=== PATIENT | male | born 1940 | race Caucasian/White ===

== ENCOUNTER 2022-02-24 16:03 | Inpatient (IN) ==
[2022-02-24] MEDS ORDERED: SODIUM CHLORIDE 0.9% 1000ML 500 ML IV ONE (16:24)
--- NOTE | 2022-02-24 16:31 | Emergency Department Note ---
History of Present Illness General Chief complaint: Fever Stated complaint: FEVER, NAUSEA Time Seen by Provider: 02/24/22 16:13 Source: patient, family ( who is at the bedside), RN notes reviewed and old records reviewed Mode of arrival: ambulatory Limitations: no limitations History of Present Illness Maximum Pain Intensity: 8 This Patient comes in saying "I am very sick". He said his COPD flareup about a week ago and was seen [facility] on [address]. He finished a course of cefdinir and prednisone. He says started yesterday he felt sick again. He started feeling achy all over had a fever he had nausea but no vomiting he has pain in the upper abdomen/lower chest bilaterally. Has been coughing and has been increased with clear phlegm. He has a history of COPD and does not currently feel like he needs a breathing treatment. He denies any back pain or frequency has had dysuria and a hard time urinating at times. No tick bites or rash. Mild headache but nothing severe. He has had some increasing shortness of breath. He denies any cardiac history and denies that he is on any blood thinners Home Medications Medication Instructions Recorded Confirmed Type albuterol sulfate 90 mcg/actuation 2 puff INHALATION QID PRN 02/24/22 02/24/22 History aerosol inhaler amlodipine 10 mg tablet 10 mg PO QAM 02/24/22 02/24/22 History cholecalciferol (vitamin D3) 25 25 mcg PO DAILY 02/24/22 02/24/22 History mcg (1,000 unit) tablet (Vitamin D3) lisinopril 20 mg tablet 20 mg PO QAM 02/24/22 02/24/22 History prazosin 1 mg capsule 1 mg PO HS 02/24/22 02/24/22 History Allergies Allergy/AdvReac Type Severity Reaction Status Date / Time No Known Allergies Allergy Unverified 02/24/22 17:13 Past Med/Surg History Medical History (Updated 02/24/22 @ 22:33 by Paulo Phipps MD) Arthritis Back pain HTN (hypertension) Surgical History H/O cardiac catheterization History of cataract surgery Social History Smoking Status: Never smoker Tobacco Type: Cigarettes Preferred Language: Niue[place] Feels Safe at Home: Yes Review of Systems A total of 10 systems reviewed and were otherwise negative Physical Exam Vital Signs Vital Signs - 24 hr 02/24/22 16:05 02/24/22 16:22 02/24/22 16:43 Temperature 37.7 C H Temperature Source Temporal Artery Scan Pulse Rate 107 H 102 H Pulse Rate from SpO2 Sensor Respiratory Rate 24 29 H Respiratory Effort / Characteristics Non-Labored Spontaneous Respiratory Depth Normal Respiratory Pattern Regular Blood Pressure 95/59 L Blood Pressure Mean 71 Pulse Oximetry 94 Oxygen Delivery Method Room Air Room Air Sepsis Recent Fever Within 48 Hours No Sepsis New/Unexplained Change in Mental Status No Sepsis Action Taken by Nursing No Action Required 02/24/22 17:08 02/24/22 17:30 02/24/22 18:00 Temperature Temperature Source Pulse Rate 95 H Pulse Rate from SpO2 Sensor 95 H 92 H 95 H Respiratory Rate 26 H 28 H Respiratory Effort / Characteristics Respiratory Depth Respiratory Pattern Blood Pressure Blood Pressure Mean Pulse Oximetry 95 92 90 Oxygen Delivery Method Sepsis Recent Fever Within 48 Hours Sepsis New/Unexplained Change in Mental Status Sepsis Action Taken by Nursing 02/24/22 18:30 Temperature Temperature Source Pulse Rate 91 H Pulse Rate from SpO2 Sensor 91 H Respiratory Rate 27 H Respiratory Effort / Characteristics Respiratory Depth Respiratory Pattern Blood Pressure Blood Pressure Mean Pulse Oximetry 94 Oxygen Delivery Method Sepsis Recent Fever Within 48 Hours Sepsis New/Unexplained Change in Mental Status Sepsis Action Taken by Nursing General: Well developed well nourished mildly ill-appearing older male who appears in no acute distress, breathing comfortably on room air. Normal speech HEENT: Normal cephalic atraumatic. Pupils are equal round and reactive to ligh t. Extraocular movements are intact. Oropharynx is pink with moist mucous membranes. No swelling of the mouth lips or tongue. Neck: Supple with a midline trachea. No meningeal signs or stiffness, no JVD or bruits. No Stridor. Chest: Clear to auscultation bilaterally. No wheezes or rhonchi. No increased work of breathing. Heart: Regular rate and rhythm without murmurs or gallops. Abdomen: Soft, minimally tender in the upper abdomen bilaterally no rash or discoloration. He appears distended but says this is baseline. Norebound guarding or rigidity. Extremities: No cyanosis clubbing or edema. No calf tenderness or assymetry Spine/Back. Non tender to palpation. No CVA tenderness Skin: Good turgor without rashes. Neurologic exam: Cranial nerves two through 12 are intact. Motor and sensation are intact and symmetrical throughout. Course Administered Medications Doxycycline Hyclate 100 mg/ (Dextrose) 110 mls @ 50 mls/hr IV Q12H ASHLEY Stop: 03/10/22 20:59 Last Admin: 02/24/22 21:14 Dose: 50 mls/hr Documented by: [id number] Sodium Chloride (Nss 1000ml) 1,000 mls @ 100 mls/hr IV .Q10H ASHLEY Stop: 03/26/22 21:29 Last Admin: 02/24/22 21:26 Dose: 100 mls/hr Documented by: [id number] Discontinued Medications Sodium Chloride (Nss 1000ml) 500 mls @ 999 mls/hr IV .Q31M ONE Stop: 02/24/22 16:54 Last Infusion: 02/24/22 17:59 Dose: 0 mls/hr Documented by: [id number] Admin: 02/24/22 16:47 Dose: 999 mls/hr Documented by: [id number] Sodium Chloride (Nss 1000ml) 1,000 mls @ 999 mls/hr IV .Q1H1M ONE Stop: 02/24/22 18:37 Last Infusion: 02/24/22 19:41 Dose: 0 mls/hr Documented by: [id number] Admin: 02/24/22 18:32 Dose: 999 mls/hr Documented by: [id number] Ceftriaxone Sodium (Rocephin) 2,000 mg in 70 mls @ 140 mls/hr IV NOW STA Stop: 02/24/22 18:06 Last Infusion: 02/24/22 19:41 Dose: 0 mls/hr Documented by: [id number] Admin: 02/24/22 18:32 Dose: 140 mls/hr Documented by: [id number] Critical Care Time Critical Care Time: Yes Total Critical Care Time: 32 The concern for sepsis and multisystem complaints with hypotension and there, the patient needed extensive work-up, IV fluid boluses, IV antibiotics, repeat frequent reassessment and consultation and therefore I have personally spent greater than 30 minutes of critical care time in the direct management of this patient. This includes bedside care, interpretation of diagnostic studies, and testing, discussion with consultants, patient, and family members, and other required patient management activities. This 30 minutes is in excess of all separately billable procedures. Medical Decision Making Differential Diagnosis Sepsis, pneumonia, cardiac disease, UTI, electrolyte or metabolic abnormality, infection, intra-abdominal process Medical Records Attestation: I reviewed the patient's medical records. Home Medications Current Medication List: was personally reviewed by me Laboratory Data Attestation: I reviewed the patient's lab results. Result diagrams: 02/24/22 16:48 02/24/22 16:48 Lab Results 02/24/22 02/24/22 02/24/22 Range/Units 16:45 16:48 16:48 WBC 10.35 (4.8-10.8) K/uL RBC 4.69 L (4.7-6.1) M/uL Hgb 14.5 (14.0-18.0) g/dL Hct 41.6 L (42-52) % MCV 88.7 (80-100) fL MCH 30.9 (25-34) pg MCHC 34.9 (32-36) g/dL RDW Std Deviation 44.0 (36.4-46.3) fL RDW Coeff of [place] 13.6 (11.5-14.5) % Plt Count 161 (130-400) K/uL MPV 9.2 (7.4-10.4) fL Immature Gran % (Auto) 0.3 % Neut % (Auto) 81.6 % Lymph % (Auto) 12.3 % [place] % (Auto) 5.6 % Eos % (Auto) 0.0 % Baso % (Auto) 0.2 % Neut # (Auto) 8.45 H (1.4-6.5) K/uL Lymph # (Auto) 1.27 (1.2-3.4) K/uL [place] # (Auto) 0.58 (0.11-0.59) K/uL Eos # (Auto) 0.00 (0-0.5) K/uL Baso # (Auto) 0.02 (0-0.2) K/uL Immature Gran # (Auto) 0.03 H (0.00-0.02) K/uL PT 11.7 (9.0-12.0) Seconds INR 1.1 (0.9-1.1) APTT 25.8 (21.0-31.0) Seconds PTT Ratio 0.9 Sodium (136-145) mmol/L Potassium (3.5-5.1) mmol/L Chloride (98-107) mmol/L Carbon Dioxide (21-32) mmol/L Anion Gap (3-11) BUN (6-23) mg/dl Creatinine (0.6-1.4) mg/dl Est Cr Clr Drug Dosing ml/min Est GFR ( Amer) ml/min Est GFR (Non-Af Amer) ml/min BUN/Creatinine Ratio (10-20) Glucose (70-99(Fasting)) mg/dl Lactate 1.4 (0.4-2.0) mmol/L Calcium (8.5-10.1) mg/dl Magnesium (1.7-2.4) mg/dl Total Bilirubin (0.2-1.0) mg/dl AST (13-39) U/L ALT (7-52) U/L Alkaline Phosphatase (34-104) U/L Troponin I (0-0.04) ng/ml B-Natriuretic Peptide (0-100) pg/ml Total Protein (6.0-8.3) gm/dl Albumin (3.4-5.0) gm/dl Globulin (2.5-4.0) gm/dl Albumin/Globulin Ratio (0.9-2) Procalcitonin (0-0.5) ng/ml Urine Color Urine Appearance (Clear) Urine pH (4.5-7.5) POC Urine pH (4.5-7.5) Ur Specific [place] (1.000-1.030) Urine Protein (Negative) POC Urine Protein (Negative) Urine Glucose (UA) (Negative) POC Ur Glucose (UA) (Normal) Urine Ketones (Negative) POC Urine Ketones (Negative) Urine Blood (Negative) POC Urine Blood (Negative) Urine Nitrite (Negative) POC Urine Nitrite (Negative) Urine Bilirubin (Negative) POC Urine Bilirubin (Negative) Urine Urobilinogen (Negative) POC Urine Urobilinogen (Normal) Ur Leukocyte Esterase (Negative) POC U Leukocyte Esteras (Negative) Urine WBC (Auto) (0-5) /hpf Urine RBC (Auto) (0-4) /hpf U Hyaline Cast (Auto) (0-5) /lpf U Epithel Cells (Auto) (0-5) /lpf Urine Bacteria (Auto) (Negative) Adenovirus (PCR) (NotDetected) Anaplasma Smear Anaplasma Comment Babesia Smear B. pertussis DNA (PCR) (NotDetected) B.parapertussis DNA PCR (NotDetected) Lyme Disease IgG Ab (Negative) Lyme Disease IgM Ab (Negative) C. pneumoniae DNA (PCR) (NotDetected) Coronavirus OC43 (PCR) (NotDetected) Coronavirus HKU1 (PCR) (NotDetected) Coronavirus 229E (PCR) (NotDetected) SARS-CoV-2 (PCR) (NotDetected) Coronavirus NL63 (PCR) (NotDetected) Human Metapneumovir PCR (NotDetected) Influenza Type A (PCR) (NotDetected) Influenza Type B (PCR) (NotDetected) M. pneumoniae (PCR) (NotDetected) Parainfluenza 1 (PCR) (NotDetected) Parainfluenza 2 (PCR) (NotDetected) Parainfluenza 3 (PCR) (NotDetected) Parainfluenza 4 (PCR) (NotDetected) RSV (PCR) (NotDetected) Entero/Rhino (PCR) (NotDetected) 02/24/22 02/24/22 02/24/22 Range/Units 16:48 16:48 16:48 WBC (4.8-10.8) K/uL RBC (4.7-6.1) M/uL Hgb (14.0-18.0) g/dL Hct (42-52) % MCV (80-100) fL MCH (25-34) pg MCHC (32-36) g/dL RDW Std Deviation (36.4-46.3) fL RDW Coeff of [place] (11.5-14.5) % Plt Count (130-400) K/uL MPV (7.4-10.4) fL Immature Gran % (Auto) % Neut % (Auto) % Lymph % (Auto) % [place] % (Auto) % Eos % (Auto) % Baso % (Auto) % Neut # (Auto) (1.4-6.5) K/uL Lymph # (Auto) (1.2-3.4) K/uL [place] # (Auto) (0.11-0.59) K/uL Eos # (Auto) (0-0.5) K/uL Baso # (Auto) (0-0.2) K/uL Immature Gran # (Auto) (0.00-0.02) K/uL PT (9.0-12.0) Seconds INR (0.9-1.1) APTT (21.0-31.0) Seconds PTT Ratio Sodium 132 L (136-145) mmol/L Potassium 4.2 (3.5-5.1) mmol/L Chloride 101 (98-107) mmol/L Carbon Dioxide 21 (21-32) mmol/L Anion Gap 10 (3-11) BUN 32 H (6-23) mg/dl Creatinine 2.21 H (0.6-1.4) mg/dl Est Cr Clr Drug Dosing 24.1 ml/min Est GFR ( Amer) 31.4 ml/min Est GFR (Non-Af Amer) 27.1 ml/min BUN/Creatinine Ratio 14.5 (10-20) Glucose 164 H (70-99(Fasting)) mg/dl Lactate (0.4-2.0) mmol/L Calcium 8.2 L (8.5-10.1) mg/dl Magnesium 1.9 (1.7-2.4) mg/dl Total Bilirubin 1.2 H (0.2-1.0) mg/dl AST 27 (13-39) U/L ALT 68 H (7-52) U/L Alkaline Phosphatase 69 (34-104) U/L Troponin I < 0.03 (0-0.04) ng/ml B-Natriuretic Peptide 37 (0-100) pg/ml Total Protein 7.7 (6.0-8.3) gm/dl Albumin 3.7 (3.4-5.0) gm/dl Globulin 4.0 (2.5-4.0) gm/dl Albumin/Globulin Ratio 0.9 (0.9-2) Procalcitonin 1.12 H (0-0.5) ng/ml Urine Color Urine Appearance (Clear) Urine pH (4.5-7.5) POC Urine pH (4.5-7.5) Ur Specific [place] (1.000-1.030) Urine Protein (Negative) POC Urine Protein (Negative) Urine Glucose (UA) (Negative) POC Ur Glucose (UA) (Normal) Urine Ketones (Negative) POC Urine Ketones (Negative) Urine Blood (Negative) POC Urine Blood (Negative) Urine Nitrite (Negative) POC Urine Nitrite (Negative) Urine Bilirubin (Negative) POC Urine Bilirubin (Negative) Urine Urobilinogen (Negative) POC Urine Urobilinogen (Normal) Ur Leukocyte Esterase (Negative) POC U Leukocyte Esteras (Negative) Urine WBC (Auto) (0-5) /hpf Urine RBC (Auto) (0-4) /hpf U Hyaline Cast (Auto) (0-5) /lpf U Epithel Cells (Auto) (0-5) /lpf Urine Bacteria (Auto) (Negative) Adenovirus (PCR) (NotDetected) Anaplasma Smear Anaplasma Comment Babesia Smear B. pertussis DNA (PCR) (NotDetected) B.parapertussis DNA PCR (NotDetected) Lyme Disease IgG Ab (Negative) Lyme Disease IgM Ab (Negative) C. pneumoniae DNA (PCR) (NotDetected) Coronavirus OC43 (PCR) (NotDetected) Coronavirus HKU1 (PCR) (NotDetected) Coronavirus 229E (PCR) (NotDetected) SARS-CoV-2 (PCR) (NotDetected) Coronavirus NL63 (PCR) (NotDetected) Human Metapneumovir PCR (NotDetected) Influenza Type A (PCR) (NotDetected) Influenza Type B (PCR) (NotDetected) M. pneumoniae (PCR) (NotDetected) Parainfluenza 1 (PCR) (NotDetected) Parainfluenza 2 (PCR) (NotDetected) Parainfluenza 3 (PCR) (NotDetected) Parainfluenza 4 (PCR) (NotDetected) RSV (PCR) (NotDetected) Entero/Rhino (PCR) (NotDetected) 02/24/22 02/24/22 02/24/22 Range/Units 17:10 17:47 17:47 WBC (4.8-10.8) K/uL RBC (4.7-6.1) M/uL Hgb (14.0-18.0) g/dL Hct (42-52) % MCV (80-100) fL MCH (25-34) pg MCHC (32-36) g/dL RDW Std Deviation (36.4-46.3) fL RDW Coeff of [place] (11.5-14.5) % Plt Count (130-400) K/uL MPV (7.4-10.4) fL Immature Gran % (Auto) % Neut % (Auto) % Lymph % (Auto) % [place] % (Auto) % Eos % (Auto) % Baso % (Auto) % Neut # (Auto) (1.4-6.5) K/uL Lymph # (Auto) (1.2-3.4) K/uL [place] # (Auto) (0.11-0.59) K/uL Eos # (Auto) (0-0.5) K/uL Baso # (Auto) (0-0.2) K/uL Immature Gran # (Auto) (0.00-0.02) K/uL PT (9.0-12.0) Seconds INR (0.9-1.1) APTT (21.0-31.0) Seconds PTT Ratio Sodium (136-145) mmol/L Potassium (3.5-5.1) mmol/L Chloride (98-107) mmol/L Carbon Dioxide (21-32) mmol/L Anion Gap (3-11) BUN (6-23) mg/dl Creatinine (0.6-1.4) mg/dl Est Cr Clr Drug Dosing ml/min Est GFR ( Amer) ml/min Est GFR (Non-Af Amer) ml/min BUN/Creatinine Ratio (10-20) Glucose (70-99(Fasting)) mg/dl Lactate (0.4-2.0) mmol/L Calcium (8.5-10.1) mg/dl Magnesium (1.7-2.4) mg/dl Total Bilirubin (0.2-1.0) mg/dl AST (13-39) U/L ALT (7-52) U/L Alkaline Phosphatase (34-104) U/L Troponin I (0-0.04) ng/ml B-Natriuretic Peptide (0-100) pg/ml Total Protein (6.0-8.3) gm/dl Albumin (3.4-5.0) gm/dl Globulin (2.5-4.0) gm/dl Albumin/Globulin Ratio (0.9-2) Procalcitonin (0-0.5) ng/ml Urine Color Dark Yellow Urine Appearance Clear (Clear) Urine pH 5.0 (4.5-7.5) POC Urine pH 5 (4.5-7.5) Ur Specific [place] 1.022 (1.000-1.030) Urine Protein Trace H (Negative) POC Urine Protein Negative (Negative) Urine Glucose (UA) Negative (Negative) POC Ur Glucose (UA) Normal (Normal) Urine Ketones Trace H (Negative) POC Urine Ketones Negative (Negative) Urine Blood Negative (Negative) POC Urine Blood Negative (Negative) Urine Nitrite Negative (Negative) POC Urine Nitrite Negative (Negative) Urine Bilirubin Negative (Negative) POC Urine Bilirubin Negative (Negative) Urine Urobilinogen Negative (Negative) POC Urine Urobilinogen Normal (Normal) Ur Leukocyte Esterase Negative (Negative) POC U Leukocyte Esteras Negative (Negative) Urine WBC (Auto) 1-5 (0-5) /hpf Urine RBC (Auto) 5-10 H (0-4) /hpf U Hyaline Cast (Auto) 5-10 H (0-5) /lpf U Epithel Cells (Auto) 10-20 H (0-5) /lpf Urine Bacteria (Auto) Negative (Negative) Adenovirus (PCR) Not Detected (NotDetected) Anaplasma Smear Anaplasma Comment Babesia Smear B. pertussis DNA (PCR) Not Detected (NotDetected) B.parapertussis DNA PCR Not Detected (NotDetected) Lyme Disease IgG Ab (Negative) Lyme Disease IgM Ab (Negative) C. pneumoniae DNA (PCR) Not Detected (NotDetected) Coronavirus OC43 (PCR) Not Detected (NotDetected) Coronavirus HKU1 (PCR) Not Detected (NotDetected) Coronavirus 229E (PCR) Not Detected (NotDetected) SARS-CoV-2 (PCR) Not Detected (NotDetected) Coronavirus NL63 (PCR) Not Detected (NotDetected) Human Metapneumovir PCR Not Detected (NotDetected) Influenza Type A (PCR) Not Detected (NotDetected) Influenza Type B (PCR) Not Detected (NotDetected) M. pneumoniae (PCR) Not Detected (NotDetected) Parainfluenza 1 (PCR) Not Detected (NotDetected) Parainfluenza 2 (PCR) Not Detected (NotDetected) Parainfluenza 3 (PCR) Not Detected (NotDetected) Parainfluenza 4 (PCR) Not Detected (NotDetected) RSV (PCR) Not Detected (NotDetected) Entero/Rhino (PCR) Not Detected (NotDetected) 02/24/22 02/24/22 Range/Units 18:23 18:23 WBC (4.8-10.8) K/uL RBC (4.7-6.1) M/uL Hgb (14.0-18.0) g/dL Hct (42-52) % MCV (80-100) fL MCH (25-34) pg MCHC (32-36) g/dL RDW Std Deviation (36.4-46.3) fL RDW Coeff of [place] (11.5-14.5) % Plt Count (130-400) K/uL MPV (7.4-10.4) fL Immature Gran % (Auto) % Neut % (Auto) % Lymph % (Auto) % [place] % (Auto) % Eos % (Auto) % Baso % (Auto) % Neut # (Auto) (1.4-6.5) K/uL Lymph # (Auto) (1.2-3.4) K/uL [place] # (Auto) (0.11-0.59) K/uL Eos # (Auto) (0-0.5) K/uL Baso # (Auto) (0-0.2) K/uL Immature Gran # (Auto) (0.00-0.02) K/uL PT (9.0-12.0) Seconds INR (0.9-1.1) APTT (21.0-31.0) Seconds PTT Ratio Sodium (136-145) mmol/L Potassium (3.5-5.1) mmol/L Chloride (98-107) mmol/L Carbon Dioxide (21-32) mmol/L Anion Gap (3-11) BUN (6-23) mg/dl Creatinine (0.6-1.4) mg/dl Est Cr Clr Drug Dosing ml/min Est GFR ( Amer) ml/min Est GFR (Non-Af Amer) ml/min BUN/Creatinine Ratio (10-20) Glucose (70-99(Fasting)) mg/dl Lactate (0.4-2.0) mmol/L Calcium (8.5-10.1) mg/dl Magnesium (1.7-2.4) mg/dl Total Bilirubin (0.2-1.0) mg/dl AST (13-39) U/L ALT (7-52) U/L Alkaline Phosphatase (34-104) U/L Troponin I (0-0.04) ng/ml B-Natriuretic Peptide (0-100) pg/ml Total Protein (6.0-8.3) gm/dl Albumin (3.4-5.0) gm/dl Globulin (2.5-4.0) gm/dl Albumin/Globulin Ratio (0.9-2) Procalcitonin (0-0.5) ng/ml Urine Color Urine Appearance (Clear) Urine pH (4.5-7.5) POC Urine pH (4.5-7.5) Ur Specific [place] (1.000-1.030) Urine Protein (Negative) POC Urine Protein (Negative) Urine Glucose (UA) (Negative) POC Ur Glucose (UA) (Normal) Urine Ketones (Negative) POC Urine Ketones (Negative) Urine Blood (Negative) POC Urine Blood (Negative) Urine Nitrite (Negative) POC Urine Nitrite (Negative) Urine Bilirubin (Negative) POC Urine Bilirubin (Negative) Urine Urobilinogen (Negative) POC Urine Urobilinogen (Normal) Ur Leukocyte Esterase (Negative) POC U Leukocyte Esteras (Negative) Urine WBC (Auto) (0-5) /hpf Urine RBC (Auto) (0-4) /hpf U Hyaline Cast (Auto) (0-5) /lpf U Epithel Cells (Auto) (0-5) /lpf Urine Bacteria (Auto) (Negative) Adenovirus (PCR) (NotDetected) Anaplasma Smear See Comment A Anaplasma Comment Pos for Anaplasma Babesia Smear See Comment B. pertussis DNA (PCR) (NotDetected) B.parapertussis DNA PCR (NotDetected) Lyme Disease IgG Ab Negative (Negative) Lyme Disease IgM Ab Positive A (Negative) C. pneumoniae DNA (PCR) (NotDetected) Coronavirus OC43 (PCR) (NotDetected) Coronavirus HKU1 (PCR) (NotDetected) Coronavirus 229E (PCR) (NotDetected) SARS-CoV-2 (PCR) (NotDetected) Coronavirus NL63 (PCR) (NotDetected) Human Metapneumovir PCR (NotDetected) Influenza Type A (PCR) (NotDetected) Influenza Type B (PCR) (NotDetected) M. pneumoniae (PCR) (NotDetected) Parainfluenza 1 (PCR) (NotDetected) Parainfluenza 2 (PCR) (NotDetected) Parainfluenza 3 (PCR) (NotDetected) Parainfluenza 4 (PCR) (NotDetected) RSV (PCR) (NotDetected) Entero/Rhino (PCR) (NotDetected) Imaging Data Attestation: I personally reviewed and interpreted this imaging study as follows: My Impression: Chest X-rayno acute infiltrate, failure, pneumothorax seen. No free air seen. Radiologist's Impression: Chest X-Ray 02/24/22 16:22 SINGLE VIEW CHEST CLINICAL HISTORY: Sepsis. FINDINGS: An AP, portable, upright chest radiograph is compared to study dated 08/12/2013 and correlated with chest CT dated 09/27/2013. The examination is degraded by portable technique and apical lordotic positioning. The heart is enlarged noting atherosclerotic calcification of the thoracic aorta. The pulmonary vasculature is noncongested. Chronic interstitial thickening is similar to previous. There is mild elevation of the left hemidiaphragm with bibasilar scarring/atelectasis. No airspace consolidation or large pleural effusion is identified. No pneumothorax is seen. The skeletal structures are osteopenic. The bony thorax is grossly intact. IMPRESSION: Cardiomegaly with no acute cardiopulmonary abnormality. ACT 112: Negative or not required by law. Electronically signed by: Chris Engel M.D. 02/24/2022 5:03 PM Abdomen/Pelvis CT 02/24/22 16:23 CT SCAN OF THE ABDOMEN AND PELVIS WITHOUT IV CONTRAST CLINICAL HISTORY: Generalized abdominal pain. Fever. Dysuria. COMPARISON STUDY: Abdominal ultrasound dated 04/13/2010. TECHNIQUE: CT scan of the abdomen and pelvis is performed from the lung bases to the proximal femora. Images are reviewed in the axial, sagittal, and coronal planes. IV contrast was not administered for this examination. Note that the examination was performed in significantly suboptimal fashion without oral and IV contrast. A dose lowering technique was utilized adhering to the principles of ALARA. CT DOSE: 787.18 mGy.cm FINDINGS: Lung bases: The heart is mildly enlarged noting a small pericardial effusion. There is bibasilar scarring/atelectasis. Mild bronchiectasis is noted in the lower lobes. No airspace consolidation or pleural effusion is identified. A small hiatal hernia is noted. Liver: The unenhanced liver is normal in size and contour. The liver demons trates diffusely diminished attenuation consistent with hepatic steatosis. Fatty sparing is seen adjacent to gallbladder fossa. There is no intrahepatic biliary ductal dilatation. Gallbladder: Unremarkable. Spleen: Normal in size and attenuation. Pancreas: The unenhanced pancreas is grossly unremarkable. Adrenal glands: Bilateral adrenal adenomas measuring up to 1.5 cm. Kidneys: The unenhanced kidneys are normal in size and without hydronephrosis. There are no renal calculi identified. There is no evidence of contour deforming renal mass lesion. There is nonspecific bilateral perinephric stranding and trace fluid, left greater than right. Abdominal vasculature: There is advanced atherosclerotic calcification and mild ectasia of the abdominal aorta. Bowel: Mild fecal retention is seen throughout the colon. No bowel obstruction is identified. The appendix is well-visualized and normal. Peritoneum: There is no intraperitoneal free air or abdominal ascites. There is a fat-containing umbilical hernia. Lymphadenopathy: None. Pelvic viscera: The prostate gland is mildly enlarged and heterogeneous. The bladder wall appears thickened and trabeculated indicating chronic outlet obstruction. Skeletal structures: The skeletal structures are osteopenic. There is mild to moderate lumbosacral spondylosis. No lytic or blastic lesions are seen. IMPRESSION: 1. There is nonspecific bilateral perinephric stranding and trace fluid, left greater than right. Correlate with clinical findings and urinalysis. 2. No renal calculi or hydronephrosis is seen. 3. Hepatomegaly and hepatic steatosis. 4. Cardiomegaly. 5. Additional findings as above. ACT 112: Negative or not required by law. Electronically signed by: Chris Engel M.D. 02/24/2022 5:16 PM ECG Data Attestation: I personally reviewed and interpreted this ECG as follows: Indication: + weakness Rate (beats per minute): 101 Rhythm: + sinus tachycardia ECG Intervals/blocks: + Normal QRS and + Normal AL ECG [place]: + Left axis deviation ECG Findings: no PACs or no PVCs Comparison ECG Date: from (09/27/2013) Change: no significant change MDM Narrative This patient comes in as described above. He is sick for a day. He has a fever and feels generally ill. He has had some urinary symptoms and nausea. He also had a recent COPD flareup. I am concerned about sepsis. He was initially given a 500 cc IV normal saline bolus. His lungs are clear without crackles. Chest x-ray, EKG, and multiple blood testing was obtained. He was reassessed frequently. I did swab him for Covid and influenza and biofire. His EKG does not show any ischemic changes. Chest x-ray does not show any definite pneumonia or free air. His initial white count was not significant elevated at 10. EKG does not show any ischemic changes or ectopy. Troponin is not elevated. Additionally his BNP is also normal which would go against heart failure as clinically he does not have this either. He was given additional IV fluids. His white count is not elevated and his lactic acid is normal however his procalcitonin is mildly elevated. His CAT scan of his abdomen shows some possible stranding in the urinary system but no obstruction or no other acute abnormalities. His urinalysis does not suggest a UTI. He was given Rocephin 2 g IV for broad-spectrum coverage and concern based on his symptoms that he was having a urinary infection. His bio fire came back negative and therefore there is no evidence to suggest Covid or influenza. 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 He has already received IV Rocephin which should cover Lyme and the hospitalist is going to add doxycycline. I did discuss the care with the hospitalist and I do think he needs to be admitted for further treatment and evaluation. Continuous cardiac monitoring: Orders placed in EMR for continuous traffic monitor specialist. Upon my interpretation patient noted to be in normal sinus rhythm rate of 90. Impression & Plan Sepsis, Weakness, Fever, SIRS (systemic inflammatory response syndrome), Anaplasmosis, Lyme borreliosis, Lab test negative for COVID-19 virus Discharge Plan Visit Data Chief Complaint: Fever Stated Complaint: FEVER, NAUSEA ED Provider: Paulo Phipps Discharge Problem: Sepsis, Weakness, Fever, SIRS (systemic inflammatory response syndrome), Anaplasmosis, Lyme borreliosis, Lab test negative for COVID-19 virus Patient Disposition: Admitted As Inpatient Discharge Instructions Interventions: ED Discharge Assessment Last Done: 02/24/22 21:14 Discharge Problem: Sepsis Qualifiers: Sepsis type: sepsis due to unspecified organism Sepsis acute organ dysfunction status: unspecified Qualified Code(s): A41.9 - Sepsis, unspecified organism Fever Qualifiers: Fever type: unspecified Qualified Code(s): R50.9 - Fever, unspecified
[2022-02-24 17:01] LABS: Hematocrit (blood only) 41.6 % (42-52); Hemoglobin 14.5 g/dL (14.0-18.0); Mean Corpuscular Hemoglobin 30.9 pg (25-34); Mean Corpuscular Hgb Conc 34.9 g/dL (32-36); Mean Corpuscular Volume 88.7 fL (80-100); Mean Platelet Volume 9.2 fL (7.4-10.4); Platelet Count 161 K/uL (130-400); RDW Coefficient of Variation 13.6 % (11.5-14.5); Red Blood Count 4.69 M/uL (4.7-6.1); White Blood Count 10.35 K/uL (4.8-10.8)
--- NOTE | 2022-02-24 17:04 | XRay Report ---
SINGLE VIEW CHEST CLINICAL HISTORY: Sepsis. FINDINGS: An AP, portable, upright chest radiograph is compared to study dated 08/12/2013 and correlat ed with chest CT dated 09/27/2013. The examination is degraded by portable technique and apical lordo tic positioning. The heart is enlarged noting atherosclerotic calcification of the thoracic aorta. Th e pulmonary vasculature is noncongested. Chronic interstitial thickening is similar to previous. Ther e is mild elevation of the left hemidiaphragm with bibasilar scarring/atelectasis. No airspace consol idation or large pleural effusion is identified. No pneumothorax is seen. The skeletal structures are osteopenic. The bony thorax is grossly intact. IMPRESSION: Cardiomegaly with no acute cardiopulmonary abnormality. ACT 112: Negative or not required by law. Electronically signed by: Chris Engel M.D. 02/24/2022 5:03 PM
[2022-02-24 17:11] LABS: INR 1.1 (0.9-1.1); Partial Thromboplastin Ratio 0.9; Partial Thromboplastin Time 25.8 Seconds (21.0-31.0); Prothrombin Time 11.7 Seconds (9.0-12.0)
--- NOTE | 2022-02-24 17:18 | CT Scan Report ---
CT SCAN OF THE ABDOMEN AND PELVIS WITHOUT IV CONTRAST CLINICAL HISTORY: Generalized abdominal pain. Fever. Dysuria. COMPARISON STUDY: Abdominal ultrasound dated 04/13/2010. TECHNIQUE: CT scan of the abdomen and pelvis is performed from the lung bases to the proximal femora. Images are reviewed in the axial, sagittal, and coronal planes. IV contrast was not administered for this examination. Note that the examination was performed in significantly suboptimal fashion withou t oral and IV contrast. A dose lowering technique was utilized adhering to the principles of ALARA. CT DOSE: 787.18 mGy.cm FINDINGS: Lung bases: The heart is mildly enlarged noting a small pericardial effusion. There is bibasilar scar ring/atelectasis. Mild bronchiectasis is noted in the lower lobes. No airspace consolidation or pleur al effusion is identified. A small hiatal hernia is noted. Liver: The unenhanced liver is normal in size and contour. The liver demonstrates diffusely diminishe d attenuation consistent with hepatic steatosis. Fatty sparing is seen adjacent to gallbladder fossa. There is no intrahepatic biliary ductal dilatation. Gallbladder: Unremarkable. Spleen: Normal in size and attenuation. Pancreas: The unenhanced pancreas is grossly unremarkable. Adrenal glands: Bilateral adrenal adenomas measuring up to 1.5 cm. Kidneys: The unenhanced kidneys are normal in size and without hydronephrosis. There are no renal darya culi identified. There is no evidence of contour deforming renal mass lesion. There is nonspecific bi lateral perinephric stranding and trace fluid, left greater than right. Abdominal vasculature: There is advanced atherosclerotic calcification and mild ectasia of the abdomi nal aorta. Bowel: Mild fecal retention is seen throughout the colon. No bowel obstruction is identified. The gerry endix is well-visualized and normal. Peritoneum: There is no intraperitoneal free air or abdominal ascites. There is a fat-containing umbi lical hernia. Lymphadenopathy: None. Pelvic viscera: The prostate gland is mildly enlarged and heterogeneous. The bladder wall appears thi ckened and trabeculated indicating chronic outlet obstruction. Skeletal structures: The skeletal structures are osteopenic. There is mild to moderate lumbosacral sp ondylosis. No lytic or blastic lesions are seen. IMPRESSION: 1. There is nonspecific bilateral perinephric stranding and trace fluid, left greater than right. Cor relate with clinical findings and urinalysis. 2. No renal calculi or hydronephrosis is seen. 3. Hepatomegaly and hepatic steatosis. 4. Cardiomegaly. 5. Additional findings as above. ACT 112: Negative or not required by law. Electronically signed by: Chris Engel M.D. 02/24/2022 5:16 PM
[2022-02-24 17:23] LABS: Troponin I < 0.03 ng/ml (0-0.04)
[2022-02-24 17:29] LABS: Basophils # (auto) 0.02 K/uL (0-0.2); Basophils % (auto) 0.2 %; Immature Granulocytes # (auto) 0.03 K/uL (0.00-0.02); Immature Granulocytes % (auto) 0.3 %; Lymphocytes # (auto) 1.27 K/uL (1.2-3.4); Lymphocytes % (auto) 12.3 %; Monocytes # (auto) 0.58 K/uL (0.11-0.59); Monocytes % (auto) 5.6 %; Neutrophils # (auto) 8.45 K/uL (1.4-6.5); Neutrophils % (auto) 81.6 %
[2022-02-24 17:34] LABS: Alanine Aminotransferase 68 U/L (7-52); Albumin Globulin Ratio 0.9 (0.9-2); Albumin Level 3.7 gm/dl (3.4-5.0); Alkaline Phosphatase 69 U/L (34-104); Anion Gap 10 (3-11); Aspartate Aminotransferase 27 U/L (13-39); BUN Creatinine Ratio 14.5 (10-20); Bilirubin,Total 1.2 mg/dl (0.2-1.0); Blood Urea Nitrogen 32 mg/dl (6-23); Calcium 8.2 mg/dl (8.5-10.1); Carbon Dioxide 21 mmol/L (21-32); Chloride 101 mmol/L (98-107); Creatinine Clr Calc Pharmacy 24.1 ml/min; Est GFR (African American) 31.4 ml/min; Est GFR (Non-African American) 27.1 ml/min; Glucose 164 mg/dl (70-99(Fasting)); Magnesium 1.9 mg/dl (1.7-2.4); Potassium 4.2 mmol/L (3.5-5.1); Sodium 132 mmol/L (136-145); Total Protein 7.7 gm/dl (6.0-8.3)
[2022-02-24] MEDS ORDERED: SODIUM CHLORIDE 0.9% 1000ML 1,000 ML IV ONE (17:37)
[2022-02-24] MEDS ORDERED: cefTRIAXone SODIUM 2,000 MG/70 ML BAG IV STA (17:37)
[2022-02-24 18:02] LABS: POC Urine Bilirubin Negative (Negative); POC Urine Blood Negative (Negative); POC Urine Glucose Normal (Normal); POC Urine Ketones Negative (Negative); POC Urine Leukocytes Negative (Negative); POC Urine Nitrite Negative (Negative); POC Urine Protein Negative (Negative); POC Urine Urobilinogen Normal (Normal); POC Urine pH 5 (4.5-7.5)
[2022-02-24 18:08] LABS: Appearance Urine Clear (Clear); Bacteria Urine Automated Negative (Negative); Bilirubin Urine Negative (Negative); Blood Urine Negative (Negative); Color Urine Dark Yellow; Glucose Urine UA Negative (Negative); Ketones Urine Trace (Negative); Leukocyte Esterase Urine Negative (Negative); Nitrite Urine Negative (Negative); Protein Urine Trace (Negative); Specific Gravity Urine 1.022 (1.000-1.030); Urobilinogen Urine Negative (Negative)
--- NOTE | 2022-02-24 18:16 | History & Physical Report ---
Date of Service February 24, 2022 Assessment & Plan (1) SIRS (systemic inflammatory response syndrome): (2) VLAD (acute kidney injury): (3) Essential (primary) hypertension: (4) COPD (chronic obstructive pulmonary disease): Plan: SIRS- Suspected tick borne illness. r/o sepsis- Meets SIRS criteria with tachycardia, tachypnea, fever. Procal elevated. No leucocytosis. ALT mildly elevated. Anaplasma smear with inclusions, Lyme screen positive, Western blot pending. Non contrast CT with bilateral perinephric stranding but UA unremarkable. Will continue doxy/ceftriaxone for now. Follow up on labs. Can discontinue ceftriaxone if cultures negative and tick illness is the only culprit. VLAD- Cr 2.2, prior Cr 1.3. Hold lisinopril, continue IVF, recheck in am. Avoid nephrotoxics. Hyponatremia- mild, getting ivf, recheck in am HTN- BP low, hold amlodipine and lisinopril. Resume as indicated, one at a time. COPD- not in exacerbation. Recently treated. History of Present Illness Chief Complaint: Not feeling well Primary Care Provider: NO PCP 82 year old male with h/o HTN who presented to the ED not feeling well since yesterday. Patient follows [facility] and has his care there. He was recently diagnosed with COPD in 02/2022 and was recently treated for a flare of COPD with cefdinir, prednisone and ventolin for 5 days and was completed 2 days back, with improvement. Yesterday, he felt sick. He had fever Tmax of 100.5 with chills and bodyaches. Some nausea but no vomiting. No diarrhea. Has difficulty micturition due to BPH. States urine is dark and he has been trying to hydrate himself. No rash. No joint pain. States he had tick bite 3 weeks back but not engorged and was not treated. Denies any sick contacts. Lives with who is fine. No h/o lyme disease. Denies any h/o VTE or cardiac issues. Quit smoking in 2001. Drinks beer occasionally. Denies any drug use. In the ED, he had low grade temperature with some tachypnea and tachycardia and borderline normal BP. He was given IVF and Abx and he was feeling little better. at bedside. Discussed the labs and CT findings and plan of care. Allergies Allergy/AdvReac Type Severity Reaction Status Date / Time No Known Allergies Allergy Unverified 02/24/22 17:13 Home Medications Medication Instructions Recorded Confirmed Type albuterol sulfate 90 mcg/actuation 2 puff INHALATION QID PRN 02/24/22 02/24/22 History aerosol inhaler amlodipine 10 mg tablet 10 mg PO QAM 02/24/22 02/24/22 History cholecalciferol (vitamin D3) 25 25 mcg PO DAILY 02/24/22 02/24/22 History mcg (1,000 unit) tablet (Vitamin D3) lisinopril 20 mg tablet 20 mg PO QAM 02/24/22 02/24/22 History prazosin 1 mg capsule 1 mg PO HS 02/24/22 02/24/22 History Past Med/Surg History Medical History (Updated 02/24/22 @ 19:42 by Simon Childs MD) Arthritis Back pain HTN (hypertension) Surgical History H/O cardiac catheterization History of cataract surgery Social History Smoking Status: Never smoker Tobacco Type: Cigarettes Preferred Language: Romanian Feels Safe at Home: Yes Review of Systems Review of Systems: All systems reviewed & are unremarkable except as noted in Subjective Physical Exam Physical Exam: General: Lying comfortably in bed, not in distress, on room air HEENT: EOMI, GARRETT, MMM Chest: Decreased breath sounds bilaterally, no obvious wheezes or crackles CVS: Regular rate and rhythm, normal heart sounds, no murmur Abdomen: Soft, non tender, not distended, normal bowel sounds Neuro: Awake, alert, oriented, conversing well, non focal Extremities: No cyanosis, clubbing or edema No rash. Prior tick bite site looks normal. Results & Data Results & Data ([facility]) Vital Signs (Past 12 Hours) Vital Signs Temp Pulse Resp BP Pulse Ox 02/24/22 16:05 37.7 C H 107 H 24 95/59 L 94 Laboratory Results Short CBC 02/24/22 Range/Units 16:48 WBC 10.35 (4.8-10.8) K/uL Hgb 14.5 (14.0-18.0) g/dL Hct 41.6 L (42-52) % Plt Count 161 (130-400) K/uL BMP 02/24/22 16:48 Sodium 132 L Potassium 4.2 Chloride 101 Carbon Dioxide 21 BUN 32 H Creatinine 2.21 H Glucose 164 H Calcium 8.2 L Cardiac Enzymes 02/24/22 Range/Units 16:48 Troponin I < 0.03 (0-0.04) ng/ml Liver Function 02/24/22 Range/Units 16:48 Total Bilirubin 1.2 H (0.2-1.0) mg/dl AST 27 (13-39) U/L ALT 68 H (7-52) U/L Alkaline Phosphatase 69 (34-104) U/L Albumin 3.7 (3.4-5.0) gm/dl Urine 02/24/22 Range/Units 17:47 Urine Color Dark Yellow Urine Appearance Clear (Clear) Urine pH 5.0 (4.5-7.5) Ur Specific [place] 1.022 (1.000-1.030) Urine Protein Trace H (Negative) Urine Glucose (UA) Negative (Negative) Diagnostic Findings Chest X-Ray 02/24/22 16:22 SINGLE VIEW CHEST CLINICAL HISTORY: Sepsis. FINDINGS: An AP, portable, upright chest radiograph is compared to study dated 08/12/2013 and correlated with chest CT dated 09/27/2013. The examination is degraded by portable technique and apical lordotic positioning. The heart is enlarged noting atherosclerotic calcification of the thoracic aorta. The pulmonary vasculature is noncongested. Chronic interstitial thickening is similar to previous. There is mild elevation of the left hemidiaphragm with bibasilar scarring/atelectasis. No airspace consolidation or large pleural effusion is identified. No pneumothorax is seen. The skeletal structures are osteopenic. The bony thorax is grossly intact. IMPRESSION: Cardiomegaly with no acute cardiopulmonary abnormality. ACT 112: Negative or not required by law. Electronically signed by: Chris Engel M.D. 02/24/2022 5:03 PM Abdomen/Pelvis CT 02/24/22 16:23 CT SCAN OF THE ABDOMEN AND PELVIS WITHOUT IV CONTRAST CLINICAL HISTORY: Generalized abdominal pain. Fever. Dysuria. COMPARISON STUDY: Abdominal ultrasound dated 04/13/2010. TECHNIQUE: CT scan of the abdomen and pelvis is performed from the lung bases to the proximal femora. Images are reviewed in the axial, sagittal, and coronal planes. IV contrast was not administered for this examination. Note that the examination was performed in significantly suboptimal fashion without oral and IV contrast. A dose lowering technique was utilized adhering to the principles of ALARA. CT DOSE: 787.18 mGy.cm FINDINGS: Lung bases: The heart is mildly enlarged noting a small pericardial effusion. There is bibasilar scarring/atelectasis. Mild bronchiectasis is noted in the lower lobes. No airspace consolidation or pleural effusion is identified. A small hiatal hernia is noted. Liver: The unenhanced liver is normal in size and contour. The liver demonstrates diffusely diminished attenuation consistent with hepatic steatosis. Fatty sparing is seen adjacent to gallbladder fossa. There is no intrahepatic biliary ductal dilatation. Gallbladder: Unremarkable. Spleen: Normal in size and attenuation. Pancreas: The unenhanced pancreas is grossly unremarkable. Adrenal glands: Bilateral adrenal adenomas measuring up to 1.5 cm. Kidneys: The unenhanced kidneys are normal in size and without hydronephrosis. There are no renal calculi identified. There is no evidence of contour deforming renal mass lesion. There is nonspecific bilateral perinephric stranding and trace fluid, left greater than right. Abdominal vasculature: There is advanced atherosclerotic calcification and mild ectasia of the abdominal aorta. Bowel: Mild fecal retention is seen throughout the colon. No bowel obstruction is identified. The appendix is well-visualized and normal. Peritoneum: There is no intraperitoneal free air or abdominal ascites. There is a fat-containing umbilical hernia. Lymphadenopathy: None. Pelvic viscera: The prostate gland is mildly enlarged and heterogeneous. The bladder wall appears thickened and trabeculated indicating chronic outlet obstruction. Skeletal structures: The skeletal structures are osteopenic. There is mild to moderate lumbosacral spondylosis. No lytic or blastic lesions are seen. IMPRESSION: 1. There is nonspecific bilateral perinephric stranding and trace fluid, left greater than right. Correlate with clinical findings and urinalysis. 2. No renal calculi or hydronephrosis is seen. 3. Hepatomegaly and hepatic steatosis. 4. Cardiomegaly. 5. Additional findings as above. ACT 112: Negative or not required by law. Electronically signed by: Chris Engel M.D. 02/24/2022 5:16 PM
[2022-02-24 18:41] LABS: Adenovirus PCR Not Detected (NotDetected); Bordetella parapertussis PCR Not Detected (NotDetected); Bordetella pertussis PCR Not Detected (NotDetected); Chlamydia pneumoniae PCR Not Detected (NotDetected); Coronavirus 229E PCR Not Detected (NotDetected); Coronavirus CoV-2 (COVID19)PCR Not Detected (NotDetected); Coronavirus HKU1 PCR Not Detected (NotDetected); Coronavirus NL63 PCR Not Detected (NotDetected); Coronavirus OC43PCR Not Detected (NotDetected); Human Metapneumovirus PCR Not Detected (NotDetected); Influenza A PCR Not Detected (NotDetected); Influenza B PCR Not Detected (NotDetected); Mycoplasma pneumoniae PCR Not Detected (NotDetected); Parainfluenza Virus 1 PCR Not Detected (NotDetected); Parainfluenza Virus 2 PCR Not Detected (NotDetected); Parainfluenza Virus 3 PCR Not Detected (NotDetected); Parainfluenza Virus 4 PCR Not Detected (NotDetected); Respiratory Syncytial VirusPCR Not Detected (NotDetected); Rhinovirus/Enterovirus PCR Not Detected (NotDetected)
[2022-02-24 19:08] LABS: Lyme Ab IgG w/WB Rflx Negative (Negative)
[2022-02-24 19:31] LABS: Lyme Ab IgM w/WB Rflx Positive (Negative)
[2022-02-24 20:32] LABS: Anaplasmosis Smear(Rpt to DOH) Pos for Anaplasma
[2022-02-24] MEDS: DOXYCYCLINE HYCLATE 100 MG in DEXTROSE 5% 100 ML IV SCH (21:14)
[2022-02-24] MEDS ORDERED: ALBUTEROL HFA 8 GM INHALER INH PRN (21:16)
[2022-02-24] MEDS ORDERED: cefTRIAXone SODIUM 2,000 MG in DEXTROSE 5% 50 ML IV SCH (21:16)
[2022-02-24] MEDS: SODIUM CHLORIDE 0.9% 1000ML 1,000 ML IV SCH (21:26)
[2022-02-24] MEDS ORDERED: ENOXAPARIN INJ 30 MG/0.3 ML SYR SQ SCH (21:30)
[2022-02-24] MEDS: PRAZOSIN HCL 1 MG CAP PO SCH (22:42)
[2022-02-25 08:08] LABS: Basophils # (auto) 0.05 K/uL (0-0.2); Basophils % (auto) 0.7 %; Eosinophils # (auto) 0.02 K/uL (0-0.5); Eosinophils % (auto) 0.3 %; Hematocrit (blood only) 34.5 % (42-52); Immature Granulocytes # (auto) 0.02 K/uL (0.00-0.02); Immature Granulocytes % (auto) 0.3 %; Lymphocytes # (auto) 1.96 K/uL (1.2-3.4); Mean Corpuscular Hgb Conc 34.8 g/dL (32-36); Mean Corpuscular Volume 89.1 fL (80-100); Mean Platelet Volume 9.8 fL (7.4-10.4); Monocytes # (auto) 0.57 K/uL (0.11-0.59); Monocytes % (auto) 8.2 %; Neutrophils # (auto) 4.37 K/uL (1.4-6.5); Neutrophils % (auto) 62.5 %; Platelet Count 122 K/uL (130-400); RDW Coefficient of Variation 13.9 % (11.5-14.5); RDW Standard Deviation 45.6 fL (36.4-46.3); Red Blood Count 3.87 M/uL (4.7-6.1); White Blood Count 6.99 K/uL (4.8-10.8)
[2022-02-25] MEDS: SODIUM CHLORIDE 0.9% 1000ML 1,000 ML IV SCH ×2 (08:29→21:11)
[2022-02-25 08:41] LABS: Creatinine Clr Calc Pharmacy 41.7 ml/min; Est GFR (African American) 52.8 ml/min; Est GFR (Non-African American) 45.5 ml/min
[2022-02-25 08:42] LABS: BUN Creatinine Ratio 19.4 (10-20); Bilirubin Direct 0.2 mg/dl (0-0.2); Bilirubin,Total 0.9 mg/dl (0.2-1.0); Calcium 7.2 mg/dl (8.5-10.1); Potassium 3.8 mmol/L (3.5-5.1); Total Protein 6.3 gm/dl (6.0-8.3)
[2022-02-25] MEDS: DOXYCYCLINE HYCLATE 100 MG in DEXTROSE 5% 100 ML IV SCH ×2 (09:02→21:12)
--- NOTE | 2022-02-25 13:27 | Hospitalist Progress Note ---
Date of Service February 25, 2022 Assessment & Plan (1) SIRS (systemic inflammatory response syndrome): (2) VLAD (acute kidney injury): (3) Essential (primary) hypertension: (4) COPD (chronic obstructive pulmonary disease): Plan: #. Flulike illness vs tick borne infection Patient presented with complaints of decreased appetite, myalgia, feeling of achy, feeling of short of breath, runny nose, fever, loose stool for 3 to 4 days prior to arrival. Patient has history of tick bite 3 weeks ago [employer], no skin rash at the site of bite. Procalcitonin was elevated at presentation, pt started on ATB 02/24, will continue w/ that Lyme disease IgM antibody positive, Western blot pending. Patient reports improving appetite and cough. Afebrile in hospital. Getting better. Afebrile, WBC WNL; follow-up with Western blot and other tickborne serology. Follow-up post testing blood culture. Continue with supportive management. #. VLAD Baseline creatinine around 1.2, admitting creatinine 2.2 Likely prerenal from poor p.o. intake prior to arrival. Patient on IV fluid, creatinine improving BMP daily, avoid nephrotoxins #. Hyponatremia: Mild, getting IVF, follow-up BMP, secondary to poor p.o. intake. #. Other chronic medical conditions: HTN, COPD Continue/resume home medication as and when appropriate Continue to hold antihypertensive and lisinopril. DVT prophylaxis: Enoxaparin Full code PT/OT, CM to assist with DC planning. Admission and Anticipated Discharge Date Admission Date: February 24, 2022 Subjective Patient seen and examined at bedside as a follow-up of SIRS POA, likely viral infection, recent history of tick bite. Patient was lying in bed, on room air, NAD, no new acute events overnight. Patient reports improving appetite and feeling hungry today. Pt reports cough improving. Patient denies any nausea or vomiting. Patient denies any headache/chills/fever/chest pain/palpitations/pelvic pain/other review of symptoms. Physical Exam Physical Exam: GENERAL: Was asleep initially. Alert and oriented x3. NAD, on RA. HEENT: No pallor, no icterus. Pupils equal, round and reactive to light. Oral mucosa moist. NECK: No JVD, no neck masses. HEART: S1 and S2 heard. Regular rate and rhythm. No murmur, no gallop. RESPIRATORY SYSTEM: Normal AP diameter. No accessory muscle use. No wheezing, no crackles. ABDOMEN: Soft, bowel sounds present, nontender, no distention. CENTRAL NERVOUS SYSTEM: No facial droop. Speech is clear. Obeys simple commands. Moves extremities. EXTREMITIES: No edema, no erythema seen. No rash. Prior tick bite site looks normal. Results & Data Results & Data ([facility]) Vital Signs (Past 12 Hours) Vital Signs Temp Pulse Pulse Pulse Resp BP Pulse Ox 02/25/22 12:00 36.3 C L 63 18 112/54 L 93 02/25/22 07:28 36.7 C 74 18 100/61 92 02/25/22 07:00 73 02/25/22 03:41 36.8 C 80 20 127/63 93
[2022-02-25] MEDS ORDERED: cefTRIAXone SODIUM 2,000 MG in DEXTROSE 5% 50 ML IV SCH (18:00)
[2022-02-25] MEDS ORDERED: ENOXAPARIN INJ 40 MG/0.4 ML SYR SQ SCH (21:00)
[2022-02-25] MEDS: PRAZOSIN HCL 1 MG CAP PO SCH (21:12)
[2022-02-25] MEDS ORDERED: SIMETHICONE 80 MG CHEW PO STA (23:06)
--- NOTE | 2022-02-26 05:55 | Electrocardiogram Report ---
Test Reason : Blood Pressure : / mmHG Vent. Rate : 101 BPM Atrial Rate : 101 BPM P-R Int : 182 ms QRS Dur : 082 ms QT Int : 320 ms P-R-T Axes : 063 -40 076 degrees QTc Int : 414 ms Sinus tachycardia Left axis deviation Abnormal ECG When compared with ECG of 27-SEP-2013 12:10, Vent. rate has increased BY 41 BPM P wave morphology has changed Confirmed by Del Carlisle ([id number]) on 02/26/2022 5:55:11 AM Referred By: REFERRED SELF Confirmed By:Del Carlisle
[2022-02-26] MEDS: SODIUM CHLORIDE 0.9% 1000ML 1,000 ML IV SCH (07:41)
[2022-02-26] MEDS: DOXYCYCLINE HYCLATE 100 MG in DEXTROSE 5% 100 ML IV SCH (07:55)
[2022-02-26 08:42] LABS: Hematocrit (blood only) 36.5 % (42-52); Hemoglobin 12.8 g/dL (14.0-18.0); Mean Corpuscular Hemoglobin 30.5 pg (25-34); Mean Corpuscular Hgb Conc 35.1 g/dL (32-36); Mean Corpuscular Volume 87.1 fL (80-100); Platelet Count 129 K/uL (130-400); RDW Coefficient of Variation 13.6 % (11.5-14.5); RDW Standard Deviation 43.6 fL (36.4-46.3); Red Blood Count 4.19 M/uL (4.7-6.1); White Blood Count 6.22 K/uL (4.8-10.8)
[2022-02-26 10:23] LABS: BUN Creatinine Ratio 13.7 (10-20); Calcium 7.9 mg/dl (8.5-10.1); Creatinine Clr Calc Pharmacy 37.4 ml/min; Est GFR (African American) 46.1 ml/min; Est GFR (Non-African American) 39.8 ml/min; Magnesium 1.8 mg/dl (1.7-2.4)
--- NOTE | 2022-02-26 13:53 | Discharge Summary ---
Date of Service February 26, 2022 Admission HPI Per Admitting Provider 82 year old male with h/o HTN who presented to the ED not feeling well since yesterday. Patient follows [place] and has his care there. He was recently diagnosed with COPD in 02/2022 and was recently treated for a flare of COPD with cefdinir, prednisone and ventolin for 5 days and was completed 2 days back, with improvement. Yesterday, he felt sick. He had fever Tmax of 100.5 with chills and bodyaches. Some nausea but no vomiting. No diarrhea. Has difficulty micturition due to BPH. States urine is dark and he has been trying to hydrate himself. No rash. No joint pain. States he had tick bite 3 weeks back but not engorged and was not treated. Denies any sick contacts. Lives with who is fine. No h/o lyme disease. Denies any h/o VTE or cardiac issues. Quit smoking in 2001. Drinks beer occasionally. Denies any drug use. In the ED, he had low grade temperature with some tachypnea and tachycardia and borderline normal BP. He was given IVF and Abx and he was feeling little better. at bedside. Discussed the labs and CT findings and plan of care. Admission Exam Per Admitting Provider General: Lying comfortably in bed, not in distress, on room air HEENT: EOMI, GARRETT, MMM Chest: Decreased breath sounds bilaterally, no obvious wheezes or crackles CVS: Regular rate and rhythm, normal heart sounds, no murmur Abdomen: Soft, non tender, not distended, normal bowel sounds Neuro: Awake, alert, oriented, conversing well, non focal Extremities: No cyanosis, clubbing or edema No rash. Prior tick bite site looks normal. Principal Diagnosis Acute kidney injury over CKD Flulike illness versus tickborne infection Mild hyponatremia Discharge Exam GENERAL: Was asleep initially. Alert and oriented x3. NAD, on RA. HEENT: No pallor, no icterus. Pupils equal, round and reactive to light. Oral mucosa moist. NECK: No JVD, no neck masses. HEART: S1 and S2 heard. Regular rate and rhythm. No murmur, no gallop. RESPIRATORY SYSTEM: Normal AP diameter. No accessory muscle use. No wheezing, no crackles. ABDOMEN: Soft, bowel sounds present, nontender, no distention. CENTRAL NERVOUS SYSTEM: No facial droop. Speech is clear. Obeys simple commands. Moves extremities. EXTREMITIES: No edema, no erythema seen. No rash. Prior tick bite site looks normal. Discharge Data Allergies Allergy/AdvReac Type Severity Reaction Status Date / Time No Known Allergies Allergy Unverified 02/24/22 17:13 Consultations 02/24/22 18:14 ED Decision to Admit Stat Ordered Studies 02/24/22 16:23 CT abd pelvis wo con Stat Hospital Course (1) SIRS (systemic inflammatory response syndrome): (2) VLAD (acute kidney injury): (3) Essential (primary) hypertension: (4) COPD (chronic obstructive pulmonary disease): 82 yo M was managed for the following while in hospital: #. Flulike illness vs tick borne infection Patient presented with complaints of decreased appetite, myalgia, feeling of achy, feeling of short of breath, runny nose, fever, loose stool for 3 to 4 days prior to arrival. Patient has history of tick bite 3 weeks ago TRIM IN[employer], no skin rash at the site of bite. Procalcitonin was elevated at presentation, pt started on ATB 02/24, will continue w/ that Lyme disease IgM antibody positive, Western blot pending. Patient reports improving appetite and cough. Afebrile in hospital. Getting better. Patient feels stronger today especially with walking. Afebrile, WBC WNL; follow-up with Western blot and other tickborne serology/patient advised to get in touch with PCP. Follow-up with PCP in a week time. #. VLAD Baseline creatinine around 1.2, admitting creatinine 2.2 Likely prerenal from poor p.o. intake prior to arrival. Creatinine still elevated but better, weekly BMP for 3 weeks and have the results forwarded to your PCP Lisinopril held upon discharge, needs discussion with PCP prior to resuming lisinopril. #. Hyponatremia: Resolved. Improved p.o. intake. #. Other chronic medical conditions: HTN, COPD Continue/resume home medication as and when appropriate Continue to hold lisinopril upon discharge [see above]. DVT prophylaxis: Enoxaparin Full code Patient is being discharged home with following instruction at the point of discharge: Follow-up with the primary care physician within a week time. While in the hospital your Lyme disease IgM antibody is positive, your Western blot test is pending, follow-up with your primary care for final results of your Western blot test. You will be discharged on doxycycline. As discussed at the bedside, your kidney have mild injury at the time of discharge, you will need your blood work BMP every week for 3 weeks and have the results forwarded to your PCP. Your lisinopril will be held upon discharge, follow-up with your PCP within a week time to discuss on resuming your lisinopril after you get your first blood work BMP. It needs to be resumed when your kidney function is back to your baseline. Take medications as prescribed. Total Time Total Time Spent Total Time Spent (In Minutes): 40 Discharge Plan Discharge Items Patient Disposition: Home - Self-Care Reason For Visit: FEELING SICK Discharge Diagnosis: Acute kidney injury over CKD Flulike illness versus tickborne infection Mild hyponatremia Activity: Resume your previous activity Non-emergency contact: Primary Care Provider Call non-emergency contact if: you have any medication questions, your symptoms worsen and your temperature is above 101 Follow-up/Referrals: PCP,NO [Primary Care Provider] - Diet: Regular Addtl Attending Provider Instructions: Follow-up with the primary care physician within a week time. While in the hospital your Lyme disease IgM antibody is positive, your Western blot test is pending, follow-up with your primary care for final results of your Western blot test. You will be discharged on doxycycline. As discussed at the bedside, your kidney have mild injury at the time of discharge, you will need your blood work BMP every week for 3 weeks and have the results forwarded to your PCP. Your lisinopril will be held upon discharge, follow-up with your PCP within a week time to discuss on resuming your lisinopril after you get your first blood work BMP. It needs to be resumed when your kidney function is back to your baseline. Take medications as prescribed. Pending Studies at Discharge: Yes (Admitting blood culture) Stand-Alone Forms: My [employer], Smoking Cessation Medications and DC Order Prescriptions: New doxycycline hyclate 100 mg tablet 100 mg PO BID 10 Days Qty: 20 RF: 0 Continued albuterol sulfate 90 mcg/actuation HFA aerosol inhaler 2 puff INHALATION QID PRN (Reason: Shortness Of Breath Or Wheezing) RF: 0 prazosin 1 mg Capsule 1 mg PO HS RF: 0 amlodipine 10 mg Tablet 10 mg PO QAM RF: 0 cholecalciferol (vitamin D3) [Vitamin D3] 25 mcg (1,000 unit) Tablet 25 mcg PO DAILY RF: 0 Discontinued lisinopril 20 mg Tablet 20 mg PO QAM RF: 0 Discharge Orders: Discharge Order (Routine); Ordered 02/26/22 Ordered By: Lamine Whitehead Admission Data Admit Date/Time: 02/24/22 19:56 Attending Provider: Lamine Whitehead Admit Provider: Simon Childs Primary Care Provider: PCP,NO Other Providers: Simon Childs ; [facility]
[2022-02-26] MEDS ORDERED: cefTRIAXone SODIUM 2,000 MG in DEXTROSE 5% 50 ML IV ONE (14:00)
[2022-02-27 13:56] LABS: 18KDIGG Band NON-REACTIVE; 23KDIGG Band NON-REACTIVE; 23KDIGM Band REACTIVE; 28KDIGG Band NON-REACTIVE; 30KDIGG Band NON-REACTIVE; 39KDIGG Band NON-REACTIVE; 39KDIGM Band NON-REACTIVE; 41KDIGG Band REACTIVE; 41KDIGM Band NON-REACTIVE; 45KDIGG Band NON-REACTIVE; 58KDIGG Band NON-REACTIVE; 66KDIGG Band NON-REACTIVE; 93KDIGG Band NON-REACTIVE; Lyme Antibodies, WB IgG NEGATIVE (NEGATIVE); Lyme Antibodies, WB IgM NEGATIVE (NEGATIVE)
[2022-02-28 13:46] LABS: Babesia microti DNA Not Detected (Not Detected)
== END 2022-02-26 17:40 | disposition home or self-care (01) | DRG 868 ==
LOC: ED 16:03 → SUATTDRO 19:56 → 2W 19:56

== ENCOUNTER 2024-04-03 17:52 | Inpatient (IN) ==
--- NOTE | 2024-04-03 18:12 | Emergency Department Note ---
Impression & Plan Cellulitis, Flores cyst ED Provider Note NAME: DION MATUTE AGE: 84 SEX: M : 1940 ARRIVES VIA: Walk-In INFORMANT: Patient, ED PROVIDER(S): Luciano Gonzalez DO CHIEF COMPLAINT: Leg pain HPI: The patient is an 84-year-old male who presented to the emergency department for evaluation of lower extremity pain. The patient had flulike symptoms last week with bodyaches but those resolved. He started noticing right lower extremity swelling and pain over the last 24 hours. He noticed redness as well. He has pain into his groin. The patient denies having any injury to his right lower extremity. He denies having any cuts or bruises. 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 The patient is not been seen by his family doctor for the symptoms. He denies having any nausea or vomiting. He denies having any chest pain or difficulty breathing. ROS: See above HPI for pertinent positives & negatives. A total of 10 systems reviewed and were otherwise negative. PAST MEDICAL HISTORY: See Below PAST SURGICAL HISTORY: See Below FAMILY HISTORY: See Below SOCIAL HISTORY: See Below HOME MEDICATIONS: See Below ALLERGIES: See Below VITALS: See Below PHYSICAL EXAMINATION: GENERAL: Patient is awake alert in no acute distress patient is resting comfortably and showing no signs of anxiety EYES: The conjunctivae are clear. The pupils are round and reactive. EARS, NOSE, MOUTH AND THROAT: The nose is without any evidence of any deformity. Mucous membranes are moist. Tongue is midline. NECK: The neck is nontender and supple. RESPIRATORY: Normal respiratory effort is noted there is no evidence of wheezing rhonchi or rales CARDIOVASCULAR: Regular rate and rhythm noted there no murmurs rubs or gallops normal S1 normal S2. GASTROINTESTINAL: The abdomen is soft. Abdomen is nontender. MUSCULOSKELETAL/EXTREMITIES: There is no evidence of gross deformity full range of motion is noted in the hips and shoulders. SKIN: Right lower extremities swelling was noted. There is erythema especially in the right calf into the ankle. There is no fluctuance. There is lymphangitic streaking with tenderness into the right groin. Pulses are symmetric in both feet. NEUROLOGIC: Patient is awake alert and oriented x3 MEDICAL DECISION MAKING: The patient is an 84-year-old male who presented to the emergency department for an evaluation of leg swelling and leg pain. His history and physical exam appear to be consistent with a cellulitis but he has significant inguinal pain. I was concerned this could also represent venous thromboembolic disease. I discussed patient's laboratory and radiographic studies with him. He was treated with IV antibiotics in the emergency department. The cellulitis does appear to be somewhat extensive especially in the right lower extremity but he also has signs of lymphangitic streaking in the right thigh. For this reason I discussed his condition with the on-call [facility] hospitalist. They have agreed to evaluate the patient in the emergency department for further management and disposition. Triage Nursing notes reviewed. Prior medical records reviewed Vital Signs: reviewed and remarkable for no significant abnormalities Differential diagnosis: Cellulitis, abscess, MRSA infection, DVT, necrotizing fasciitis, dermatitis, drug eruption, allergic reaction, as well as other pathologies. ER treatment provided: See below Diagnostics interpreted by me: ECG: none Cardiac Monitoring: An order was placed for continuous cardiac monitoring. The monitor shows a rate of 82 bpm with sinus rhythm. Laboratory studies: As stated above and show below. Imaging studies: See below. Consultation(s): I discussed this case with Dr. Ariz[facility]endi [facility]. Past Med/Surg History Problem List (Updated 04/03/24 @ 23:33 by Luciano Gonzalez DO) Flores cyst (Acute) Cellulitis (Acute) Lab test negative for COVID-19 virus (Acute) Lyme borreliosis (Acute) Anaplasmosis (Acute) Sepsis (Acute) COPD (chronic obstructive pulmonary disease) Essential (primary) hypertension VLAD (acute kidney injury) SIRS (systemic inflammatory response syndrome) (Acute) Weakness (Acute) Fever (Acute) Epistaxis (Acute) Epistaxis (Acute) Medical History (Updated 04/03/24 @ 23:33 by Luciano Gonzalez DO) Back pain Arthritis HTN (hypertension) Surgical History History of cataract surgery Social History Smoking Status: Former smoker Tobacco Type: Cigarettes Hx Alcohol Use: Yes Hx Substance Use: No Preferred Language: Nigerien Communication Ability: Effective [employer] Technician Required: No Beliefs That Will Affect Care: None Current Living Situation: Spouse Feels Safe at Home: Yes Assistive Devices: Cane Allergies Allergies Allergy/AdvReac Type Severity Reaction Status Date / Time No Known Allergies Allergy Unverified 04/03/24 20:40 Home Meds Home Medications Medication Instructions Recorded Confirmed cholecalciferol (vitamin D3) 25 25 mcg PO DAILY 02/24/22 04/03/24 mcg (1,000 unit) tablet (Vitamin D3) amlodipine 10 mg tablet 10 mg PO HS 04/03/24 04/03/24 lisinopril 40 mg tablet 40 mg PO QAM 04/03/24 04/03/24 naproxen 500 mg tablet 500 mg PO UD PRN Pain 04/03/24 04/03/24 prazosin 2 mg capsule 2 mg PO HS 04/03/24 04/03/24 Results & Data (ED) Vital Signs Vital Signs - 24 hr 04/03/24 17:54 04/03/24 18:46 04/03/24 19:22 Temperature 36.5 C Temperature Source Oral Pulse Rate 91 H 75 Pulse Rate [Left] 79 Pulse Rate from SpO2 Sensor Pulse Rhythm [Left] Regular Pulse Strength [Left] Normal Respiratory Rate 16 18 Respiratory Effort / Characteristics Non-Labored Respiratory Depth Normal Normal Respiratory Pattern Regular Blood Pressure 124/66 Blood Pressure [Left Arm] 133/79 Blood Pressure Mean 85 Blood Pressure Mean [Left Arm] 97 Blood Pressure Position [Left Arm] Sitting Pulse Oximetry 96 95 Oxygen Delivery Method Room Air Room Air Sepsis Recent Fever Within 48 Hours No Sepsis New/Unexplained Change in Mental Status N/A Sepsis Action Taken by Nursing No Action Required 04/03/24 19:23 04/03/24 19:30 04/03/24 19:30 Temperature Temperature Source Pulse Rate 75 76 Pulse Rate [Left] Pulse Rate from SpO2 Sensor 76 74 Pulse Rhythm [Left] Pulse Strength [Left] Respiratory Rate 25 H 24 Respiratory Effort / Characteristics Respiratory Depth Respiratory Pattern Blood Pressure 137/78 Blood Pressure [Left Arm] Blood Pressure Mean 96 Blood Pressure Mean [Left Arm] Blood Pressure Position [Left Arm] Pulse Oximetry 95 95 Oxygen Delivery Method Sepsis Recent Fever Within 48 Hours Sepsis New/Unexplained Change in Mental Status Sepsis Action Taken by Nursing 04/03/24 19:40 04/03/24 19:50 04/03/24 20:03 Temperature Temperature Source Pulse Rate 77 77 Pulse Rate [Left] 76 Pulse Rate from SpO2 Sensor 77 76 Pulse Rhythm [Left] Pulse Strength [Left] Respiratory Rate 24 23 20 Respiratory Effort / Characteristics Non-Labored Spontaneous Respiratory Depth Normal Respiratory Pattern Blood Pressure Blood Pressure [Left Arm] 137/78 Blood Pressure Mean Blood Pressure Mean [Left Arm] 97 Blood Pressure Position [Left Arm] Pulse Oximetry 92 93 97 Oxygen Delivery Method Room Air Sepsis Recent Fever Within 48 Hours Sepsis New/Unexplained Change in Mental Status Sepsis Action Taken by Nursing 04/03/24 21:24 04/03/24 21:30 04/03/24 21:30 Temperature Temperature Source Pulse Rate 80 Pulse Rate [Left] Pulse Rate from SpO2 Sensor 75 Pulse Rhythm [Left] Pulse Strength [Left] Respiratory Rate 22 Respiratory Effort / Characteristics Respiratory Depth Respiratory Pattern Blood Pressure 114/93 122/67 Blood Pressure [Left Arm] Blood Pressure Mean 94 82 Blood Pressure Mean [Left Arm] Blood Pressure Position [Left Arm] Pulse Oximetry 93 Oxygen Delivery Method Sepsis Recent Fever Within 48 Hours Sepsis New/Unexplained Change in Mental Status Sepsis Action Taken by Nursing 04/03/24 22:00 04/03/24 23:00 Temperature Temperature Source Pulse Rate 82 Pulse Rate [Left] 82 Pulse Rate from SpO2 Sensor Pulse Rhythm [Left] Regular Pulse Strength [Left] Normal Respiratory Rate 20 18 Respiratory Effort / Characteristics Non-Labored Spontaneous Respiratory Depth Normal Respiratory Pattern Regular Blood Pressure 127/78 Blood Pressure [Left Arm] 119/77 Blood Pressure Mean 94 Blood Pressure Mean [Left Arm] 91 Blood Pressure Position [Left Arm] Pulse Oximetry 94 93 Oxygen Delivery Method Room Air Sepsis Recent Fever Within 48 Hours Sepsis New/Unexplained Change in Mental Status Sepsis Action Taken by [facility] Medications Current Medication List: was personally reviewed by me Laboratory Data Attestation: I reviewed the patient's lab results. 04/03/24 18:15 04/03/24 18:15 Lab Results 04/03/24 Range/Units 18:15 WBC 14.33 H (4.8-10.8) K/ul RBC 4.75 (4.70-6.10) M/uL Hgb 14.7 (14.0-18.0) g/dl Hct 41.4 L (42.0-52.0) % MCV 87.2 (80.0-100.0) fL MCH 30.9 (25.0-34.0) pg MCHC 35.5 (32.0-36.0) g/dL RDW Std Deviation 42.2 (36.4-46.3) fL RDW Coeff of [place] 13.2 (11.5-14.5) % Plt Count 166 (130-400) K/uL MPV 9.3 L (9.4-12.4) fL Immature Gran % (Auto) 1.5 % Neut % (Auto) 82.7 % Lymph % (Auto) 9.4 % [place] % (Auto) 5.7 % Eos % (Auto) 0.2 % Baso % (Auto) 0.5 % Neut # (Auto) 11.86 H (1.40-6.50) K/uL Lymph # (Auto) 1.34 (1.20-3.40) K/uL [place] # (Auto) 0.82 H (0.11-0.59) K/uL Eos # (Auto) 0.03 (0.00-0.50) K/uL Baso # (Auto) 0.07 (0.00-0.20) K/uL Immature Gran # (Auto) 0.21 H (0.01-0.20) K/uL PT 11.9 (9.0-12.0) Seconds INR 1.1 (0.9-1.1) APTT 29 (21-31) Seconds PTT Ratio 1.1 Sodium 137 (136-145) mmol/L Potassium 3.8 (3.5-5.1) mmol/L Chloride 105 (98-107) mmol/L Carbon Dioxide 23 (21-32) mmol/L Anion Gap 9 (3-11) BUN 22 (6-23) mg/dl Creatinine 1.77 H (0.6-1.4) mg/dl Est Cr Clr Drug Dosing 33.3 ml/min Est GFR ( Amer) 40.6 ml/min Est GFR (Non-Af Amer) 35.0 ml/min BUN/Creatinine Ratio 12.4 (10-20) Glucose 146 H (70-99(Fasting)) mg/dl Lactate 1.2 (0.4-2.0) mmol/L Calcium 9.0 (8.6-10.3) mg/dl Total Bilirubin 2.0 H (0.2-1.0) mg/dl AST 20 (13-39) U/L ALT 32 (7-52) U/L Alkaline Phosphatase 77 (34-104) U/L C-Reactive Protein 19.39 H (0-0.5) mg/dl Total Protein 7.6 (6.0-8.3) gm/dl Albumin 3.9 (3.4-5.0) gm/dl Globulin 3.7 (2.5-4.0) gm/dl Albumin/Globulin Ratio 1.1 (0.9-2) Procalcitonin 0.42 (0-0.5) ng/ml Lyme Disease Screen Negative (Negative) Administered Medications Discontinued Medications Ceftriaxone Sodium (Rocephin) 2,000 mg in 50 mls @ 100 mls/hr IV NOW STA; Protocol Stop: 04/03/24 18:37 Last Infusion: 04/03/24 19:41 Dose: Infused Documented By: Admin: 04/03/24 18:45 Dose: 100 mls/hr Documented By: CHITO Sodium Chloride (Nss) 500 mls @ 999 mls/hr IV .Q31M STA Stop: 04/03/24 18:38 Last Infusion: 04/03/24 20:02 Dose: Infused Documented By: Admin: 04/03/24 18:45 Dose: 999 mls/hr Documented By: IL Imaging Data Radiologist's Impression: Venous Doppler Study 04/03/24 18:08 Exam(s): US VENOUS RIGHT LOWER EXTREMITY EXAM: US Duplex Right Lower Extremity Veins CLINICAL HISTORY: Reason for exam: swelling. TECHNIQUE: Real-time duplex ultrasound scan of the right lower extremity veins integrating B-mode two-dimensional vascular structure, Doppler spectral analysis, color flow Doppler imaging and compression. COMPARISON: No relevant prior studies available. FINDINGS: Deep veins: Unremarkable. No DVT in the visualized common femoral, femoral, proximal deep femoral or popliteal veins. The veins demonstrate normal color flow, are normally compressible, with normal phasic flow and/or augmentation response. Soft tissues: Right popliteal fossa cyst measuring 1.1 x 1.8 x 0.5 cm. IMPRESSION: No evidence of right lower extremity deep venous thrombosis. Right popliteal fossa cyst measuring 1.1 x 1.8 x 0.5 cm. Electronically signed by: Robb Randolph M.D. 04/03/24 23:09 PM Discharge Plan Visit Data Chief Complaint: Pain (Generalized) Stated Complaint: RT LEG BLOOD VESSELS, NAUSEA ED Provider: Carlos,Luciano R Discharge Problem: Cellulitis, Flores cyst Patient Disposition: Being Evaluated by Hospitalist Forms Stand Alone Forms: My [facility] [employer] Prescriptions Prescriptions: No Action cholecalciferol (vitamin D3) [Vitamin D3] 25 mcg (1,000 unit) Tablet 25 mcg PO DAILY amlodipine 10 mg Tablet 10 mg PO HS lisinopril 40 mg Tablet 40 mg PO QAM prazosin 2 mg Capsule 2 mg PO HS naproxen 500 mg Tablet 500 mg PO UD PRN (Reason: Pain) Referrals Referrals: PCP,NO [Primary Care Provider] - Discharge Problem: Cellulitis Qualifiers: Site of cellulitis: extremity Site of cellulitis of extremity: lower extremity Laterality: right Qualified Code(s): L03.115 - Cellulitis of right lower limb Flores cyst Qualifiers: Laterality: right Qualified Code(s): M71.21 - Synovial cyst of popliteal space [Flores], right knee
[2024-04-03] MEDS: SODIUM CHLORIDE 0.9% 500 ML IV STA (18:45)
[2024-04-03] MEDS: cefTRIAXone SODIUM 2,000 MG/50 ML BAG IV STA (18:45)
[2024-04-03 18:46] LABS: Basophils # (auto) 0.07 K/uL (0.00-0.20); Basophils % (auto) 0.5 %; Eosinophils # (auto) 0.03 K/uL (0.00-0.50); Eosinophils % (auto) 0.2 %; Hematocrit (blood only) 41.4 % (42.0-52.0); Hemoglobin 14.7 g/dl (14.0-18.0); Immature Granulocytes # (auto) 0.21 K/uL (0.01-0.20); Immature Granulocytes % (auto) 1.5 %; Lymphocytes # (auto) 1.34 K/uL (1.20-3.40); Lymphocytes % (auto) 9.4 %; Mean Corpuscular Hemoglobin 30.9 pg (25.0-34.0); Mean Corpuscular Hgb Conc 35.5 g/dL (32.0-36.0); Mean Corpuscular Volume 87.2 fL (80.0-100.0); Mean Platelet Volume 9.3 fL (9.4-12.4); Monocytes # (auto) 0.82 K/uL (0.11-0.59); Monocytes % (auto) 5.7 %; Neutrophils # (auto) 11.86 K/uL (1.40-6.50); Neutrophils % (auto) 82.7 %; Platelet Count 166 K/uL (130-400); RDW Coefficient of Variation 13.2 % (11.5-14.5); RDW Standard Deviation 42.2 fL (36.4-46.3); Red Blood Count 4.75 M/uL (4.70-6.10); White Blood Count 14.33 K/ul (4.8-10.8)
[2024-04-03 18:57] LABS: Albumin Globulin Ratio 1.1 (0.9-2); Albumin Level 3.9 gm/dl (3.4-5.0); BUN Creatinine Ratio 12.4 (10-20); Creatinine Clr Calc Pharmacy 33.3 ml/min; Est GFR (African American) 40.6 ml/min; Globulin 3.7 gm/dl (2.5-4.0); Potassium 3.8 mmol/L (3.5-5.1); Total Protein 7.6 gm/dl (6.0-8.3)
[2024-04-03 19:02] LABS: Procalcitonin 0.42 ng/ml (0-0.5)
[2024-04-03 19:05] LABS: INR 1.1 (0.9-1.1); Partial Thromboplastin Ratio 1.1; Partial Thromboplastin Time 29 Seconds (21-31); Prothrombin Time 11.9 Seconds (9.0-12.0)
[2024-04-03 19:27] LABS: Lyme Screen Rflx Confirmation Negative (Negative)
--- NOTE | 2024-04-03 23:10 | Ultrasound Report ---
Exam(s): US VENOUS RIGHT LOWER EXTREMITY EXAM: US Duplex Right Lower Extremity Veins CLINICAL HISTORY: Reason for exam: swelling. TECHNIQUE: Real-time duplex ultrasound scan of the right lower extremity veins integrating B-mode two-dimensional vascular structure, Doppler spectral analysis, color flow Doppler imaging and compression. COMPARISON: No relevant prior studies available. FINDINGS: Deep veins: Unremarkable. No DVT in the visualized common femoral, femoral, proximal deep femoral or popliteal veins. The veins demonstrate normal color flow, are normally compressible, with normal phasic flow and/or augmentation response. Soft tissues: Right popliteal fossa cyst measuring 1.1 x 1.8 x 0.5 cm. IMPRESSION: No evidence of right lower extremity deep venous thrombosis. Right popliteal fossa cyst measuring 1.1 x 1.8 x 0.5 cm. Electronically signed by: Robb Randolph M.D. 04/03/24 23:09 PM
[2024-04-03 23:17] LABS: C Reactive Protein 19.39 mg/dl (0-0.5)
[2024-04-04 00:33] LABS: Appearance Urine Clear (Clear); Bacteria Urine Automated None Seen (None Seen); Bilirubin Urine 1+ (Negative); Blood Urine Negative (Negative); Cast Urine Automated 0-2 /lpf (0-2); Color Urine Dark Yellow; Epithelial Cell Urine Auto 0-2 /hpf (0-2); Glucose Urine UA Negative (Negative); Ketones Urine Trace (Negative); Leukocyte Esterase Urine Trace (Negative); Nitrite Urine Negative (Negative); Protein Urine 2+ (Negative); RBC Urine Automated 0-2 /hpf (0-2); Specific Gravity Urine 1.027 (1.000-1.030); Urobilinogen Urine Negative (Negative); WBC Urine Automated 0-5 /hpf (0-5); pH Urine 5.5 (4.5-7.5)
[2024-04-04] MEDS: DOXYCYCLINE HYCLATE 100 MG in DEXTROSE 5% MINI-B 100 ML IV STA (00:39)
--- NOTE | 2024-04-04 01:14 | History & Physical Report ---
Date of Service April 04, 2024 Assessment & Plan (1) Sepsis: Plan: Secondary to RLE cellulitis ARF on CRI secondary to illness hx CVA as per records hypertension, stable hyperlipidemia, not on statin Rx COPD, chronic cough symptoms Hyperglycemia rule out DM past tobacco abuse GMF CS, Doxycycline Elevate right lower extremity Monitor creatinine response to IVF, hold lisinopril for now until creatinine back to baseline Consider decreasing amlodipine dose if BP stable off lisinopril Check hemoglobin A1c DVT prophylaxis. Heparin subcu Full code Patient requesting updates providers. Ms. Vero Granados, contact #[phone]. Text document was generated using [employer] voice recognition software. It may contain grammatical or spelling errors. Kindly contact undersigned for clarification of any documentation item in question. History of Present Illness Chief Complaint: Worsening right leg swelling Primary Care Provider: ABIDA Harrell History obtained from patient, family, and records. Medical history significant for CVA as per records, hypertension, hyperlipidemi a, COPD, NAFLD, GERD, CRI (baseline creatinine 1.6 ), BPH, chronic back pain, past tobacco abuse. Last confinement February 2022 for flulike illness versus tickborne infection. Patient completed doxycycline course. Patient woke up yesterday morning with right leg swelling which progressed throughout the day. Fever chills without chest pain or unusual SOB. No recollection of trauma. No abdominal pain. Emesis at the ER from being hungry. Ceftriaxone administered at the ER. 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 Allergies Allergy/AdvReac Type Severity Reaction Status Date / Time No Known Allergies Allergy Unverified 04/03/24 20:40 Home Medications Medication Instructions Recorded Confirmed Type cholecalciferol (vitamin D3) 25 25 mcg PO DAILY 02/24/22 04/03/24 History mcg (1,000 unit) tablet (Vitamin D3) amlodipine 10 mg tablet 10 mg PO HS 04/03/24 04/03/24 History lisinopril 40 mg tablet 40 mg PO QAM 04/03/24 04/03/24 History naproxen 500 mg tablet 500 mg PO UD PRN Pain 04/03/24 04/03/24 History prazosin 2 mg capsule 2 mg PO HS 04/03/24 04/03/24 History Past Med/Surg History Problem List (Updated 04/03/24 @ 23:33 by Luciano Gonzalez DO) Flroes cyst (Acute) Cellulitis (Acute) Lab test negative for COVID-19 virus (Acute) Lyme borreliosis (Acute) Anaplasmosis (Acute) Sepsis (Acute) COPD (chronic obstructive pulmonary disease) Essential (primary) hypertension VLAD (acute kidney injury) SIRS (systemic inflammatory response syndrome) (Acute) Weakness (Acute) Fever (Acute) Epistaxis (Acute) Epistaxis (Acute) Medical History (Updated 04/03/24 @ 23:33 by Luciano Gonzalez DO) Back pain Arthritis HTN (hypertension) Surgical History History of cataract surgery Social History Smoking Status: Former smoker Tobacco Type: Cigarettes Hx Alcohol Use: Yes Alcohol type: beer Hx Substance Use: No Preferred Language: Swedish Communication Ability: Effective [employer] Finish Operator Tig Welder Required: No Beliefs That Will Affect Care: None Current Living Situation: Spouse Feels Safe at Home: Yes Safety Concerns: Feels Safe At This Time Assistive Devices: Cane and Hearing Aid - Bilateral Review of Systems Review of Systems: As per HPI, all other systems reviewed and negative Physical Exam Physical Exam: GENERAL: Comfortable, pleasant, obese, looks younger than stated age, no respiratory distress SKIN: Normal color, warm HEENT: [place] palpebral conjunctivae, no ptosis, dry buccal mucosa NECK : Supple, no tenderness CHEST : Decreased breath sounds, no tenderness HEART : RRR, no obvious murmurs ABDOMEN: Some distention, nontender EXTREMITIES : Tender RLE swelling, no other conspicuous deformities noted NEUROLOGIC : Coherent, no facial asymmetry, no other gross focality Results & Data Results & Data Vital Signs (Past 12 Hours) Vital Signs Temp Pulse Pulse Resp BP BP Pulse Ox 04/04/24 01:00 82 24 139/84 93 04/04/24 00:30 78 24 147/74 H 95 04/04/24 00:28 82 04/04/24 00:11 91 H 24 118/68 93 04/03/24 23:30 18 126/69 93 04/03/24 23:00 82 18 127/78 93 04/03/24 22:00 82 20 119/77 94 04/03/24 21:30 80 22 93 04/03/24 21:30 122/67 04/03/24 21:24 114/93 04/03/24 20:03 76 20 137/78 97 04/03/24 19:50 77 23 93 04/03/24 19:40 77 24 92 04/03/24 19:30 137/78 04/03/24 19:30 76 24 95 04/03/24 19:23 75 25 H 95 04/03/24 19:22 75 04/03/24 18:46 79 18 133/79 95 04/03/24 17:54 36.5 C 91 H 16 124/66 96 O2 Del Method 04/04/24 01:00 04/04/24 00:30 04/04/24 00:28 04/04/24 00:11 04/03/24 23:30 04/03/24 23:00 04/03/24 22:00 Room Air 04/03/24 21:30 04/03/24 21:30 04/03/24 21:24 04/03/24 20:03 Room Air 04/03/24 19:50 04/03/24 19:40 04/03/24 19:30 04/03/24 19:30 04/03/24 19:23 04/03/24 19:22 04/03/24 18:46 Room Air 04/03/24 17:54 Room Air Laboratory Results Laboratory Results WBC 14.33 K/ul (4.8-10.8) H 04/03/24 18:15 RBC 4.75 M/uL (4.70-6.10) 04/03/24 18:15 Hgb 14.7 g/dl (14.0-18.0) 04/03/24 18:15 Hct 41.4 % (42.0-52.0) L 04/03/24 18:15 MCV 87.2 fL (80.0-100.0) 04/03/24 18:15 MCH 30.9 pg (25.0-34.0) 04/03/24 18:15 MCHC 35.5 g/dL (32.0-36.0) 04/03/24 18:15 RDW Std Deviation 42.2 fL (36.4-46.3) 04/03/24 18:15 RDW Coeff of Lakia 13.2 % (11.5-14.5) 04/03/24 18:15 Plt Count 166 K/uL (130-400) 04/03/24 18:15 MPV 9.3 fL (9.4-12.4) L 04/03/24 18:15 Immature Gran % (Auto) 1.5 % 04/03/24 18:15 Neut % (Auto) 82.7 % 04/03/24 18:15 Lymph % (Auto) 9.4 % 04/03/24 18:15 Kerr % (Auto) 5.7 % 04/03/24 18:15 Eos % (Auto) 0.2 % 04/03/24 18:15 Baso % (Auto) 0.5 % 04/03/24 18:15 Neut # (Auto) 11.86 K/uL (1.40-6.50) H 04/03/24 18:15 Lymph # (Auto) 1.34 K/uL (1.20-3.40) 04/03/24 18:15 Kerr # (Auto) 0.82 K/uL (0.11-0.59) H 04/03/24 18:15 Eos # (Auto) 0.03 K/uL (0.00-0.50) 04/03/24 18:15 Baso # (Auto) 0.07 K/uL (0.00-0.20) 04/03/24 18:15 Immature Gran # (Auto) 0.21 K/uL (0.01-0.20) H 04/03/24 18:15 PT 11.9 Seconds (9.0-12.0) 04/03/24 18:15 INR 1.1 (0.9-1.1) 04/03/24 18:15 APTT 29 Seconds (21-31) 04/03/24 18:15 PTT Ratio 1.1 04/03/24 18:15 Sodium 137 mmol/L (136-145) 04/03/24 18:15 Potassium 3.8 mmol/L (3.5-5.1) 04/03/24 18:15 Chloride 105 mmol/L (98-107) 04/03/24 18:15 Carbon Dioxide 23 mmol/L (21-32) 04/03/24 18:15 Anion Gap 9 (3-11) 04/03/24 18:15 BUN 22 mg/dl (6-23) 04/03/24 18:15 Creatinine 1.77 mg/dl (0.6-1.4) H 04/03/24 18:15 Est Cr Clr Drug Dosing 33.3 ml/min 04/03/24 18:15 Est GFR ( Amer) 40.6 ml/min 04/03/24 18:15 Est GFR (Non-Af Amer) 35.0 ml/min 04/03/24 18:15 BUN/Creatinine Ratio 12.4 (10-20) 04/03/24 18:15 Glucose 146 mg/dl (70-99(Fasting)) H 04/03/24 18:15 Lactate 1.2 mmol/L (0.4-2.0) 04/03/24 18:15 Calcium 9.0 mg/dl (8.6-10.3) 04/03/24 18:15 Total Bilirubin 2.0 mg/dl (0.2-1.0) H 04/03/24 18:15 AST 20 U/L (13-39) 04/03/24 18:15 ALT 32 U/L (7-52) 04/03/24 18:15 Alkaline Phosphatase 77 U/L (34-104) 04/03/24 18:15 C-Reactive Protein 19.39 mg/dl (0-0.5) H 04/03/24 18:15 Total Protein 7.6 gm/dl (6.0-8.3) 04/03/24 18:15 Albumin 3.9 gm/dl (3.4-5.0) 04/03/24 18:15 Globulin 3.7 gm/dl (2.5-4.0) 04/03/24 18:15 Albumin/Globulin Ratio 1.1 (0.9-2) 04/03/24 18:15 Procalcitonin 0.42 ng/ml (0-0.5) 04/03/24 18:15 Urine Color Dark Yellow 04/04/24 00:05 Urine Appearance Clear (Clear) 04/04/24 00:05 Urine pH 5.5 (4.5-7.5) 04/04/24 00:05 Ur Specific [place] 1.027 (1.000-1.030) 04/04/24 00:05 Urine Protein 2+ (Negative) H 04/04/24 00:05 Urine Glucose (UA) Negative (Negative) 04/04/24 00:05 Urine Ketones Trace (Negative) H 04/04/24 00:05 Urine Blood Negative (Negative) 04/04/24 00:05 Urine Nitrite Negative (Negative) 04/04/24 00:05 Urine Bilirubin 1+ (Negative) H 04/04/24 00:05 Urine Urobilinogen Negative (Negative) 04/04/24 00:05 Ur Leukocyte Esterase Trace (Negative) H 04/04/24 00:05 Urine WBC (Auto) 0-5 /hpf (0-5) 04/04/24 00:05 Urine RBC (Auto) 0-2 /hpf (0-2) 04/04/24 00:05 U Hyaline Cast (Auto) 0-2 /lpf (0-2) 04/04/24 00:05 U Epithel Cells (Auto) 0-2 /hpf (0-2) 04/04/24 00:05 Urine Bacteria (Auto) None Seen (None Seen) 04/04/24 00:05 Lyme Disease Screen Negative (Negative) 04/03/24 18:15 Impressions Venous Doppler Study 04/03/24 18:08 Exam(s): US VENOUS RIGHT LOWER EXTREMITY EXAM: US Duplex Right Lower Extremity Veins CLINICAL HISTORY: Reason for exam: swelling. TECHNIQUE: Real-time duplex ultrasound scan of the right lower extremity veins integrating B-mode two-dimensional vascular structure, Doppler spectral analysis, color flow Doppler imaging and compression. COMPARISON: No relevant prior studies available. FINDINGS: Deep veins: Unremarkable. No DVT in the visualized common femoral, femoral, proximal deep femoral or popliteal veins. The veins demonstrate normal color flow, are normally compressible, with normal phasic flow and/or augmentation response. Soft tissues: Right popliteal fossa cyst measuring 1.1 x 1.8 x 0.5 cm. IMPRESSION: No evidence of right lower extremity deep venous thrombosis. Right popliteal fossa cyst measuring 1.1 x 1.8 x 0.5 cm. Electronically signed by: Robb Randolph M.D. 04/03/24 23:09 PM Diagnostic Findings Chest x-ray as per my interpretation cardiomegaly (1) Sepsis Sepsis acute organ dysfunction status: unspecified Sepsis type: sepsis due to unspecified organism Qualified Code(s): A41.9 - Sepsis, unspecified organism
[2024-04-04] MEDS ORDERED: PROMETHAZINE HCL 6.25 MG in SODIUM CHLORIDE 0.9% 50 ML IV PRN (01:17)
[2024-04-04] MEDS: traMADol HCL 50 MG TABLET PO PRN (02:49)
[2024-04-04] MEDS: NSS + 20MEQ KCL 20 MEQ/1,000 ML BAG IV ONE (03:11)
[2024-04-04] MEDS: ACETAMINOPHEN 500 MG TAB PO PRN (05:56)
[2024-04-04 07:43] LABS: Basophils # (auto) 0.07 K/uL (0.00-0.20); Basophils % (auto) 0.5 %; Eosinophils # (auto) 0.15 K/uL (0.00-0.50); Eosinophils % (auto) 1.1 %; Hematocrit (blood only) 39.3 % (42.0-52.0); Hemoglobin 13.6 g/dl (14.0-18.0); Immature Granulocytes # (auto) 0.13 K/uL (0.01-0.20); Lymphocytes # (auto) 1.39 K/uL (1.20-3.40); Lymphocytes % (auto) 10.3 %; Mean Corpuscular Hemoglobin 30.7 pg (25.0-34.0); Mean Corpuscular Hgb Conc 34.6 g/dL (32.0-36.0); Mean Corpuscular Volume 88.7 fL (80.0-100.0); Mean Platelet Volume 9.6 fL (9.4-12.4); Monocytes # (auto) 1.22 K/uL (0.11-0.59); Neutrophils % (auto) 78.1 %; Platelet Count 157 K/uL (130-400); RDW Coefficient of Variation 13.2 % (11.5-14.5); RDW Standard Deviation 43.6 fL (36.4-46.3); Red Blood Count 4.43 M/uL (4.70-6.10); White Blood Count 13.56 K/ul (4.8-10.8)
[2024-04-04 07:57] LABS: BUN Creatinine Ratio 14.6 (10-20); Calcium 8.5 mg/dl (8.6-10.3); Creatinine Clr Calc Pharmacy 36.1 ml/min; Est GFR (African American) 44.5 ml/min; Est GFR (Non-African American) 38.4 ml/min; Potassium 4.1 mmol/L (3.5-5.1)
--- NOTE | 2024-04-04 07:59 | XRay Report ---
XR chest 1V portable HISTORY: 84 years-old Male renal failure acute chest and abdominal pain with renal failure COMPARISON: Chest radiograph 02/24/2022 TECHNIQUE: AP view of the chest FINDINGS: Atherosclerosis of the aorta. Cardiac silhouette is enlarged. No pneumothorax, large pleural effusion or pulmonary edema. Bones appear grossly intact. IMPRESSION: Cardiomegaly without acute process. ACT 112: Negative or not required by law. The above report was generated using voice recognition software. It may contain grammatical, syntax o r spelling errors. Electronically signed by: Teto Cheema M.D. 04/04/2024 7:58 AM
[2024-04-04 08:11] LABS: Estimated Average Glucose 131 mg/dl; Hemoglobin A1C 6.2 % (4.5-5.6)
[2024-04-04] MEDS: DAPTOmycin 450 MG in SYRINGE 0 ML IV SCH (08:37)
[2024-04-04] MEDS: PNEUMOCOCCAL VACCINE (PCV20) 20-VAL CONJ-DIP CRM/PF 0.5 ML SYR IM ONE (13:58)
[2024-04-04] MEDS: HEPARIN SOD 5,000 UNIT/0.5 ML VIAL SQ SCH (13:58)
--- NOTE | 2024-04-04 15:21 | Hospitalist Progress Note ---
Date of Service April 04, 2024 Assessment & Plan (1) Sepsis: Plan: Secondary to RLE cellulitis Seems to be improving overall Blood cultures pending CT right lower extremity: Pending Daptomycin IV Monitor closely ARF on CRI secondary to illness Resolved hx CVA as per records hypertension, stable hyperlipidemia, not on statin Rx COPD, chronic cough symptoms Hyperglycemia A1c 6.2 past tobacco abuse DVT prophylaxis. Heparin subcu Full code plan of care discussed with patient in detail and at length all questions answered he is understanding, agreeable, comfortable with the plan of care Admission and Anticipated Discharge Date Admission Date: April 04, 2024 Subjective Follow-up for right lower extremity cellulitis, etc. Seen resting in bed, comfortable, not in distress States he feels better today overall Right lower extremity pain improving Denies fevers or chills No other new symptoms Review of Systems Review of Systems: all noted and negative except for above Physical Exam Physical Exam: General- oriented x 3, not in distress, speaks in sentences with no effort or accessory muscle use Eyes- anicteric Neck- no JVD Lungs- clear breath sounds bilaterally, no rales/wheezes Heart- normal rate, regular rhythm; no murmurs Abdomen- normal bowel sounds, nondistended, soft, No tenderness Extremities- no pretibial edema, no calf tenderness Right lower extremity-moderate edema, erythema, mild warmth, no tenderness Right thigh: No streaking\ Neuro- alert, oriented x 3; no gross focal neurologic deficits Skin- warm & dry Results & Data Results & Data Vital Signs (Past 12 Hours) Vital Signs Temp Pulse Resp BP Pulse Ox O2 Del Method 04/04/24 08:00 36.8 C 71 18 130/74 94 Room Air (1) Sepsis Sepsis acute organ dysfunction status: unspecified Sepsis type: sepsis due to unspecified organism Qualified Code(s): A41.9 - Sepsis, unspecified organism
[2024-04-04] MEDS: lisinopril 20 MG TAB PO SCH (15:26)
[2024-04-04] MEDS: PRAZOSIN HCL 1 MG CAP PO SCH (20:26)
[2024-04-04] MEDS: amLODIPine BESYLATE 5 MG TAB PO SCH (20:27)
[2024-04-04] MEDS ORDERED: DOXYCYCLINE HYCLATE 100 MG CAP PO SCH (21:00)
[2024-04-05] MEDS: ADVANCED PROBIOTIC 625 MG CAPSULE PO SCH (07:52)
[2024-04-05 10:04] LABS: Basophils # (auto) 0.06 K/uL (0.00-0.20); Basophils % (auto) 0.6 %; Eosinophils # (auto) 0.29 K/uL (0.00-0.50); Eosinophils % (auto) 3.1 %; Hematocrit (blood only) 38.3 % (42.0-52.0); Immature Granulocytes # (auto) 0.06 K/uL (0.01-0.20); Immature Granulocytes % (auto) 0.6 %; Lymphocytes # (auto) 1.37 K/uL (1.20-3.40); Lymphocytes % (auto) 14.6 %; Mean Corpuscular Hemoglobin 30.5 pg (25.0-34.0); Mean Corpuscular Hgb Conc 33.9 g/dL (32.0-36.0); Mean Corpuscular Volume 89.9 fL (80.0-100.0); Mean Platelet Volume 9.7 fL (9.4-12.4); Monocytes # (auto) 0.93 K/uL (0.11-0.59); Monocytes % (auto) 9.9 %; Neutrophils # (auto) 6.65 K/uL (1.40-6.50); Neutrophils % (auto) 71.2 %; Platelet Count 173 K/uL (130-400); RDW Coefficient of Variation 13.5 % (11.5-14.5); RDW Standard Deviation 44.3 fL (36.4-46.3); Red Blood Count 4.26 M/uL (4.70-6.10); White Blood Count 9.36 K/ul (4.8-10.8)
[2024-04-05 10:19] LABS: BUN Creatinine Ratio 14.2 (10-20); Calcium 8.6 mg/dl (8.6-10.3); Est GFR (African American) 50.3 ml/min; Est GFR (Non-African American) 43.4 ml/min
--- NOTE | 2024-04-05 11:00 | CT Scan Report ---
RIGHT TIBIA/FIBULA CT CT DOSE: 307.72 mGy.cm HISTORY: Right lower leg swelling. r/o abscess/fluid collection TECHNIQUE: Multiaxial CT images of the right lower leg were performed and reformatted in the sagittal and coronal plane without the use of contrast. A dose lowering technique was utilized adhering to t he principles of ALARA. COMPARISON: None. FINDINGS: No fracture or dislocation within the right tibia or fibula. No bony destructive changes to suggest an osteomyelitis. Mild degenerative changes seen within the right knee and right ankle. Ther e is a tiny popliteal cyst noted. Vascular calcifications are present. There is diffuse subcutaneous edema within the right lower leg most pronounced anteriorly with mild skin thickening. No loculated f luid collections on this noncontrast study to suggest an abscess. IMPRESSION: 1. Diffuse subcutaneous trace edema within the right lower leg with mild skin thickening. This could represent chronic subcutaneous edema or a cellulitis. 2. No definite loculated fluid collections to suggest an abscess. 3. No bony destructive changes to suggest an osteomyelitis. ACT 112: Negative or not required by law. Electronically signed by: Kurt Blue M.D. 04/05/2024 10:59 AM
[2024-04-05] MEDS: diphenhydrAMINE Capsule 25 MG CAP PO PRN (12:48)
[2024-04-05] MEDS: CEFEPIME 2,000 MG in SYRINGE 0 ML IV SCH (13:13)
--- NOTE | 2024-04-05 14:34 | Hospitalist Progress Note ---
Date of Service April 05, 2024 Assessment & Plan (1) Sepsis: Plan: Secondary to RLE cellulitis Seems to be improving overall Blood cultures pending CT right lower extremity: Pending Daptomycin IV Monitor closely 04/05 CT right lower extremity: No fluid collection or abscess Showing gradual improvement Add cefepime to daptomycin Follow-up cultures Elevate leg Warm compress over the leg ARF on CRI secondary to illness Resolved hx CVA as per records hypertension, stable hyperlipidemia, not on statin Rx COPD, chronic cough symptoms Hyperglycemia A1c 6.2 past tobacco abuse DVT prophylaxis. Heparin subcu Full code plan of care discussed with patient in detail and at length all questions answered he is understanding, agreeable, comfortable with the plan of care Admission and Anticipated Discharge Date Admission Date: April 04, 2024 Subjective Follow-up for right lower extremity cellulitis, etc. Seen resting in bed, sitting up at edge of the bed, having lunch States right lower extremity pain continues to resolve, but does have itching and some burning No fevers or chills No other new symptoms Review of Systems Review of Systems: all noted and negative except for above Physical Exam Physical Exam: General- oriented x 3, not in distress, speaks in sentences with no effort or ac cessory muscle use Eyes- anicteric Neck- no JVD Lungs- clear breath sounds bilaterally, no rales/wheezes Heart- normal rate, regular rhythm; no murmurs Abdomen- normal bowel sounds, nondistended, soft, nontender Extremities- Right lower extremity: Moderate edema, erythema improving No warmth, no tenderness No streaking on the right thigh area Left lower extremity essentially normal Neuro- alert, oriented x 3; no gross focal neurologic deficits Skin- warm & dry Results & Data Results & Data Vital Signs (Past 12 Hours) Vital Signs Temp Pulse Resp BP Pulse Ox O2 Del Method 04/05/24 07:51 36.6 C 04/05/24 07:40 35.9 C L 72 17 131/69 95 Room Air all noted and reviewed including below (1) Sepsis Sepsis acute organ dysfunction status: unspecified Sepsis type: sepsis due to unspecified organism Qualified Code(s): A41.9 - Sepsis, unspecified organism
--- NOTE | 2024-04-06 14:16 | Hospitalist Progress Note ---
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 Sepsis RLE cellulitis Seems to be improving overall Blood cultures NGTD CT right lower extremity: Diffuse subcutaneous trace edema within the right lower leg with mild skin thickening. This could represent chronic subcutaneous edema or a cellulitis. Continue Daptomycin and IV cefepime (added 04/05) given persistent swelling will add small dose of lasix daily, 20mg Elevate leg Warm compress over the leg ARF on CRI secondary to illness Baseline creatinine 1.4-1.6 This resolved, monitor closely with addition of small dose Lasix Hx of CVA he is not on ASA or statin HTN chronic, stable continue amlodipine and lisinopril HLD chronic, not on statin Pre DM a1c 6.2 DVT prophylaxis. Heparin subcu Full code Dispo: not yet medically stable for discharge, continue IV antibiotics A total of 44 minutes was spent coordinating, documenting, and providing care for this patient excluding time spent in the performance of separately billed services. This included personally viewing all current laboratories and imaging studies, medication reconciliation, outpatient chart review, and discussion with specialists. Admission and Anticipated Discharge Date Admission Date: April 04, 2024 Supervising Physician Co-Signing Physician Notes delayed entry date of service noted above Attending Addendum: care coordinated with HANH Pamella Castanon please refer to her notes for full details, I agree with her notes patient seen and examined, records reviewed by myself as well diagnoses and plan of care as per above Julio Barrow MD Subjective Pt seen and examined in room 358-1. F/U Cellulitis. He is feeling better today. He feels like his redness and swelling are improving but RLE is still tight. He denies f/c/s, chest pain, sob, n/v/d, abd pain. He had good BM today. He is ambulating around his room but not giles. Review of Systems Review of Systems: All systems reviewed & are unremarkable except as noted in HPI & below Physical Exam Physical Exam: Gen: WD/WN, NAD, A&O x3 HEENT: Normocephalic, atraumatic, conjunctivae moist, sclerae anicteric, mucous membranes moist. Lung: Clear to Auscultation bilaterally, no wheezes/rales/rhonchi Heart: Regular rate, regular rhythm, no murmurs, rubs, or gallops Abdomen: Soft, NT, ND +BS x 4 Extremities: No edema Skin: Warm, no rash, negative turgor. Results & Data Results & Data Vital Signs (Past 12 Hours) Vital Signs Temp Pulse Resp BP Pulse Ox O2 Del Method 04/06/24 07:08 36.5 C 77 18 117/71 95 Room Air Medications Administered Current Inpatient Medications Acetaminophen (Acetaminophen 500 Mg Tab) 500 mg PO Q6H PRN PRN Reason: fever/pain Stop: 05/04/24 01:16 Last Admin: 04/04/24 05:56 Dose: 500 mg Amlodipine Besylate (Amlodipine Besylate 5 Mg Tab) 10 mg PO HS ASHLEY Stop: 05/04/24 20:59 Last Admin: 04/05/24 19:47 Dose: 10 mg Diphenhydramine HCl (Diphenhydramine Capsule 25 Mg Cap) 25 mg PO Q6H PRN PRN Reason: Itching Stop: 05/05/24 12:05 Last Admin: 04/05/24 12:48 Dose: 25 mg Heparin Sodium (Porcine) (Heparin Sod 5,000 Unit/0.5 Ml Vial) 5,000 units SQ Q8 ASHLEY Stop: 05/04/24 13:59 Last Admin: 04/06/24 05:10 Dose: 5,000 units Promethazine HCl 6.25 mg/ (Sodium Chloride) 50.25 mls @ 201 mls/hr IV Q6H PRN PRN Reason: Nausea And Vomiting Stop: 05/04/24 01:16 Daptomycin 450 mg/ Syringe 9 mls @ 4.5 mls/min IV Q24H ASHLEY; Protocol Stop: 04/11/24 08:29 Last Admin: 04/06/24 08:30 Dose: 4.5 mls/min Cefepime HCl 2,000 mg/ Syringe 20 mls @ 5 mls/min IV Q12H ASHLEY; Protocol Stop: 04/12/24 12:29 Last Admin: 04/06/24 12:51 Dose: 5 mls/min Lactobacillus Acidophilus (Advanced Probiotic 625 Mg Capsule) 1,250 mg PO DAILY [facility] Stop: 05/05/24 08:59 Last Admin: 04/06/24 08:30 Dose: 1,250 mg Lisinopril (Lisinopril 20 Mg Tab) 20 mg PO QAM [facility] Stop: 05/04/24 14:39 Last Admin: 04/06/24 08:30 Dose: 20 mg Prazosin HCl (Prazosin Hcl 1 Mg Cap) 2 mg PO HS [facility] Stop: 05/04/24 20:59 Last Admin: 04/05/24 19:47 Dose: 2 mg Tramadol HCl (Tramadol Hcl 50 Mg Tablet) 25 - 50 mg PO Q4H PRN PRN Reason: Pain Stop: 05/04/24 01:16 Last Admin: 04/05/24 01:11 Dose: 50 mg (1) Sepsis Sepsis acute organ dysfunction status: unspecified Sepsis type: sepsis due to unspecified organism Qualified Code(s): A41.9 - Sepsis, unspecified organism
[2024-04-06] MEDS: FUROSEMIDE 20 MG TAB PO SCH (14:57)
[2024-04-07 07:45] LABS: Basophils # (auto) 0.09 K/uL (0.00-0.20); Basophils % (auto) 0.7 %; Eosinophils # (auto) 0.37 K/uL (0.00-0.50); Hematocrit (blood only) 37.4 % (42.0-52.0); Hemoglobin 13.2 g/dl (14.0-18.0); Immature Granulocytes # (auto) 0.32 K/uL (0.01-0.20); Immature Granulocytes % (auto) 2.6 %; Lymphocytes # (auto) 1.82 K/uL (1.20-3.40); Lymphocytes % (auto) 14.6 %; Mean Corpuscular Hemoglobin 31.3 pg (25.0-34.0); Mean Corpuscular Hgb Conc 35.3 g/dL (32.0-36.0); Mean Corpuscular Volume 88.6 fL (80.0-100.0); Mean Platelet Volume 9.7 fL (9.4-12.4); Monocytes # (auto) 1.16 K/uL (0.11-0.59); Monocytes % (auto) 9.3 %; Neutrophils # (auto) 8.68 K/uL (1.40-6.50); Neutrophils % (auto) 69.8 %; Platelet Count 213 K/uL (130-400); RDW Standard Deviation 41.7 fL (36.4-46.3); Red Blood Count 4.22 M/uL (4.70-6.10); White Blood Count 12.44 K/ul (4.8-10.8)
[2024-04-07 08:07] LABS: BUN Creatinine Ratio 16.4 (10-20); Calcium 9.1 mg/dl (8.6-10.3); Creatinine Clr Calc Pharmacy 35.9 ml/min; Est GFR (African American) 44.1 ml/min; Est GFR (Non-African American) 38.1 ml/min
--- NOTE | 2024-04-07 12:04 | XRay Report ---
XR ankle LT min 3V routine CLINICAL HISTORY: Left ankle pain. COMPARISON: Left ankle radiographs November 04, 2011. FINDINGS: Alignment of the left ankle is anatomic. There is no acute fracture. Distal left fibular p late and screw fixation is noted. Hardware is intact. Ossicles along the medial malleolus are chronic . Talar dome is intact. There is a plantar calcaneal spur. Mild osteophytosis along the medial aspect of the tibiotalar joint is noted. IMPRESSION: 1. No acute fracture or dislocation within the left ankle. 2. Previous distal left fibular internal fixation. Hardware intact. 3. 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 Adjacent ossicles are chroni c. ACT 112: Negative or not required by law. Electronically signed by: Dedrick Mathis M.D. 04/07/2024 12:03 PM
[2024-04-07] MEDS: DICLOFENAC SOD 1% GEL 100 GM TUBE EXT SCH (12:33)
--- NOTE | 2024-04-07 15:19 | Hospitalist Progress Note ---
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 Sepsis RLE cellulitis Seems to be improving overall Blood cultures NGTD CT right lower extremity: Diffuse subcutaneous trace edema within the right lower leg with mild skin thickening. This could represent chronic subcutaneous edema or a cellulitis. Continue Daptomycin and IV cefepime (added 04/05) Venous duplex + R popliteal cyst but no dvt given persistent swelling will add small dose of lasix daily, 20mg Elevate leg Warm compress over the leg sx are improving, likely can transition to oral antibiotics tomorrow ARF on CRI secondary to illness Baseline creatinine 1.4-1.6 This resolved, monitor closely with addition of small dose Lasix Arthralgias to Left Knee/Ankle L ankle showing some arthritis, L knee pending but has good joint spaces suspect this may be inflammatory or deconditioning will trial voltaren gel, PT/OT CK normal Hx of CVA he is not on ASA or statin HTN chronic, stable continue amlodipine and lisinopril HLD chronic, not on statin Pre DM a1c 6.2 DVT prophylaxis. Heparin subcu Full code Dispo: not yet medically stable for discharge, continue IV antibiotics for one more day, consider discharge tomorrow if PT/OT gives clearance A total of 45 minutes was spent coordinating, documenting, and providing care for this patient excluding time spent in the performance of separately billed services. This included personally viewing all current laboratories and imaging studies, medication reconciliation, outpatient chart review, and discussion with specialists. Admission and Anticipated Discharge Date Admission Date: April 04, 2024 Supervising Physician Co-Signing Physician Notes Patient seen and examined at bedside. Discussed with above provider. Improvement in right lower extremity cellulitis noted. Patient reports of pain in right ankle and knee. X-rays were obtained; no acute findings Started on Voltaren gel Continue on antibiotics I have reviewed the advanced practitioner's documentation, and I agree with, and take responsibility for the plan of care I spent a total of 15 minutes coordinating, documenting, and providing care for this patient excluding time spent in the performance of separately billed services. All of the aforementioned completed while collaborating with the assigned advanced practitioner for a full treatment plan Subjective Pt seen and examined in room 358-1. F/U Cellulitis. He feels his R leg is less swollen and red, but when he tried to get up this morning he was having pain in his L ankle and knee and is having a hard time walking. He denies trauma, hx of gout or arthritis. HE feels unsteady when he gets up and walks. He denies f/c/s, chest pain, sob, n/v/d, abd pain. Review of Systems Review of Systems: All systems reviewed & are unremarkable except as noted in HPI & below Physical Exam Physical Exam: Gen: WD/WN, NAD, A&O x3 HEENT: Normocephalic, atraumatic, conjunctivae moist, sclerae anicteric, mucous membranes moist. Lung: Clear to Auscultation bilaterally, no wheezes/rales/rhonchi Heart: Regular rate, regular rhythm, no murmurs, rubs, or gallops Abdomen: Soft, NT, ND +BS x 4 Extremities: RLE Erythema and edema, improving. Skin: Warm, no rash, negative turgor. Results & Data Results & Data Vital Signs (Past 12 Hours) Vital Signs Temp Pulse Pulse Resp BP Pulse Ox O2 Del Method 04/07/24 14:51 36.7 C 70 18 138/65 95 Room Air 04/07/24 07:19 36.6 C 68 18 122/72 97 Room Air Medications Administered Current Inpatient Medications Acetaminophen (Acetaminophen 500 Mg Tab) 500 mg PO Q6H PRN PRN Reason: fever/pain Stop: 05/04/24 01:16 Last Admin: 04/04/24 05:56 Dose: 500 mg Amlodipine Besylate (Amlodipine Besylate 5 Mg Tab) 10 mg PO HS ASHLEY Stop: 05/04/24 20:59 Last Admin: 04/06/24 19:30 Dose: 10 mg Diclofenac Sodium (Diclofenac Sod 1% Gel 100 Gm Tube) 4 gm EXT TID ASHLEY; Protocol Stop: 05/07/24 10:34 Last Admin: 04/07/24 15:09 Dose: Not Given Diphenhydramine HCl (Diphenhydramine Capsule 25 Mg Cap) 25 mg PO Q6H PRN PRN Reason: Itching Stop: 05/05/24 12:05 Last Admin: 04/05/24 12:48 Dose: 25 mg Furosemide (Furosemide 20 Mg Tab) 20 mg PO QAM [facility] Stop: 05/06/24 14:29 Last Admin: 04/07/24 10:58 Dose: 20 mg Heparin Sodium (Porcine) (Heparin Sod 5,000 Unit/0.5 Ml Vial) 5,000 units SQ Q8 [facility] Stop: 05/04/24 13:59 Last Admin: 04/07/24 14:11 Dose: 5,000 units Promethazine HCl 6.25 mg/ (Sodium Chloride) 50.25 mls @ 201 mls/hr IV Q6H PRN PRN Reason: Nausea And Vomiting Stop: 05/04/24 01:16 Daptomycin 450 mg/ Syringe 9 mls @ 4.5 mls/min IV Q24H [facility]; Protocol Stop: 04/11/24 08:29 Last Admin: 04/07/24 09:13 Dose: 4.5 mls/min Cefepime HCl 2,000 mg/ Syringe 20 mls @ 5 mls/min IV Q12H [facility]; Protocol Stop: 04/12/24 12:29 Last Admin: 04/07/24 12:33 Dose: 5 mls/min Lactobacillus Acidophilus (Advanced Probiotic 625 Mg Capsule) 1,250 mg PO DAILY [facility] Stop: 05/05/24 08:59 Last Admin: 04/07/24 08:54 Dose: 1,250 mg Lisinopril (Lisinopril 20 Mg Tab) 20 mg PO QAM [facility] Stop: 05/04/24 14:39 Last Admin: 04/07/24 08:54 Dose: 20 mg Prazosin HCl (Prazosin Hcl 1 Mg Cap) 2 mg PO HS [facility] Stop: 05/04/24 20:59 Last Admin: 04/06/24 19:29 Dose: 2 mg Tramadol HCl (Tramadol Hcl 50 Mg Tablet) 25 - 50 mg PO Q4H PRN PRN Reason: Pain Stop: 05/04/24 01:16 Last Admin: 04/07/24 05:04 Dose: 50 mg (1) Sepsis Sepsis acute organ dysfunction status: unspecified Sepsis type: sepsis due to unspecified organism Qualified Code(s): A41.9 - Sepsis, unspecified organism
--- NOTE | 2024-04-07 15:23 | XRay Report ---
XR knee LT 1 or 2V routine CLINICAL HISTORY: Left knee pain. COMPARISON STUDY: None. FINDINGS: No fracture or dislocation within the left knee. Mild vascular calcifications are noted. No knee effusion. No significant soft tissue swelling. There is faint chondrocalcinosis within the left knee. Cartilage spaces are maintained. IMPRESSION: 1. No fracture or dislocation within the left knee. 2. Mild chondrocalcinosis. ACT 112: Negative or not required by law. Electronically signed by: Kurt Blue M.D. 04/07/2024 3:21 PM
[2024-04-08 08:13] LABS: Hematocrit (blood only) 35.1 % (42.0-52.0); Hemoglobin 12.4 g/dl (14.0-18.0); Mean Corpuscular Hgb Conc 35.3 g/dL (32.0-36.0); Mean Corpuscular Volume 87.8 fL (80.0-100.0); Mean Platelet Volume 9.4 fL (9.4-12.4); Platelet Count 209 K/uL (130-400); RDW Coefficient of Variation 12.7 % (11.5-14.5); RDW Standard Deviation 40.6 fL (36.4-46.3); White Blood Count 12.84 K/ul (4.8-10.8)
[2024-04-08 08:38] LABS: Basophils # (auto) 0.11 K/uL (0.00-0.20); Basophils % (auto) 0.9 %; Calcium 8.8 mg/dl (8.6-10.3); Creatinine Clr Calc Pharmacy 36.3 ml/min; Eosinophils # (auto) 0.42 K/uL (0.00-0.50); Eosinophils % (auto) 3.3 %; Est GFR (African American) 44.8 ml/min; Est GFR (Non-African American) 38.7 ml/min; Immature Granulocytes # (auto) 0.68 K/uL (0.01-0.20); Immature Granulocytes % (auto) 5.3 %; Lymphocytes # (auto) 1.66 K/uL (1.20-3.40); Lymphocytes % (auto) 12.9 %; Monocytes # (auto) 1.11 K/uL (0.11-0.59); Monocytes % (auto) 8.6 %; Neutrophils # (auto) 8.86 K/uL (1.40-6.50)
[2024-04-08] MEDS ORDERED: methylPREDNISolone 125 MG/2 ML VIAL IV SCH (11:00)
[2024-04-08] MEDS: methylPREDNISolone 20 MG in SYRINGE 0 ML IV SCH (11:48)
--- NOTE | 2024-04-08 15:08 | Hospitalist Progress Note ---
Date of Service April 08, 2024 Assessment & Plan (1) Sepsis: Plan: This is an 84-year-old male who has a significant past medical history of HTN, HLD, history of CVA, GERD, fatty liver, BPH, macular degeneration, 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 Sepsis RLE cellulitis Patient presented with RLE erthyema and swelling Blood cultures NGTD CT right lower extremity: Diffuse subcutaneous trace edema within the right lower leg with mild skin thickening. This could represent chronic subcutaneous edema or a cellulitis. Venous duplex + R popliteal cyst but no dvt Continue Daptomycin; plan to discharge on augmentin and doxycyline. Elevate leg Warm compress over the leg ARF on CRI secondary to illness Baseline creatinine 1.4-1.6 This resolved, monitor closely with addition of small dose Lasix Left ankle pain Likely acute gout Patient had acute onset of pain in his left ankle Mild swelling present Likely precipitated by Lasix Uric acid elevated to 8.9 Will start on him on steroids as patient is unable to take NSAIDs and colchicine given renal insufficiency Monitor for response Continue Voltaren gel HTN chronic, stable continue amlodipine and lisinopril HLD chronic, not on statin Pre DM a1c 6.2 DVT prophylaxis. Heparin subcu Full code Dispo: not yet medically stable for discharge, continue IV antibiotics. Currently on iv steroids for possible acute gout. Please note the above document was generated using voice recognition software. It may contain grammatical, syntax or spelling errors. Any formal questions or concerns about the content, text or information contained within the body of this dictation should be directly addressed to the provider for clarification Admission and Anticipated Discharge Date Admission Date: April 04, 2024 Subjective Patient seen and examined at bedside He reports improvement in redness and swelling on his right foot. However he continues to report pain on his left ankle and has difficulty putting weight on it. Review of Systems Review of Systems: All systems reviewed & are unremarkable except as noted in Subjective Physical Exam Physical Exam: Constitutional: AOX 3; not in distress Respiratory: normal respiratory effort, lungs clear to auscultation, no wheeze, rales, rhonchi. Normal insp/exp effort, no accessory muscle use Cardiovascular: RRR, no murmur, no edema Vessels: no JVD or carotid bruit Chest: normal inspection of chest Abdomen: normal bowel sounds, soft, nontender, no hepatosplenomegaly Musculoskeletal: no cyanosis or clubbing, extremities motor strength 5/5 Skin: no rashes, warm and dry normal turgor Neurologic: PERRL, EOMI, accommodation nl, no face palsy, no dysarthria CN's II- XI intact bilaterally and moves all extremities Psychiatric: A+Ox3, euthymic affect Results & Data Results & Data Vital Signs (Past 12 Hours) Vital Signs Temp Pulse Resp BP Pulse Ox O2 Del Method 04/08/24 14:31 36.8 C 81 16 148/62 H 95 Room Air 04/08/24 07:02 36.7 C 76 16 125/64 94 Room Air (1) Sepsis Sepsis acute organ dysfunction status: unspecified Sepsis type: sepsis due to unspecified organism Qualified Code(s): A41.9 - Sepsis, unspecified organism
[2024-04-09 05:50] LABS: Hematocrit (blood only) 36.2 % (42.0-52.0); Hemoglobin 12.7 g/dl (14.0-18.0); Mean Corpuscular Hemoglobin 30.9 pg (25.0-34.0); Mean Corpuscular Hgb Conc 35.1 g/dL (32.0-36.0); Mean Corpuscular Volume 88.1 fL (80.0-100.0); Mean Platelet Volume 9.3 fL (9.4-12.4); Platelet Count 243 K/uL (130-400); RDW Coefficient of Variation 12.3 % (11.5-14.5); RDW Standard Deviation 39.9 fL (36.4-46.3); Red Blood Count 4.11 M/uL (4.70-6.10); White Blood Count 12.89 K/ul (4.8-10.8)
[2024-04-09 06:04] LABS: BUN Creatinine Ratio 20.7 (10-20); Calcium 8.9 mg/dl (8.6-10.3); Est GFR (African American) 41.4 ml/min; Est GFR (Non-African American) 35.7 ml/min; Potassium 4.6 mmol/L (3.5-5.1)
[2024-04-09 06:44] LABS: Basophils # (auto) 0.06 K/uL (0.00-0.20); Basophils % (auto) 0.5 %; Eosinophils # (auto) 0.01 K/uL (0.00-0.50); Eosinophils % (auto) 0.1 %; Immature Granulocytes % (auto) 5.4 %; Lymphocytes # (auto) 1.24 K/uL (1.20-3.40); Lymphocytes % (auto) 9.6 %; Monocytes # (auto) 0.37 K/uL (0.11-0.59); Monocytes % (auto) 2.9 %; Neutrophils # (auto) 10.51 K/uL (1.40-6.50); Neutrophils % (auto) 81.5 %; RBC Morphology Unremarkable
--- NOTE | 2024-04-09 15:25 | Discharge Summary ---
Date of Service April 09, 2024 Admission HPI Per Admitting Provider History obtained from patient, family, and records. Medical history significant for CVA as per records, hypertension, hyperlipidemia, COPD, NAFLD, GERD, CRI (baseline creatinine 1.6 ), BPH, chronic back pain, past tobacco abuse. Last confinement February 2022 for flulike illness versus tickborne infection. Patient completed doxycycline course. Patient woke up yesterday morning with right leg swelling which progressed throughout the day. Fever chills without chest pain or unusual SOB. No recollection of trauma. No abdominal pain. Emesis at the ER from being hungry. Ceftriaxone administered at the ER. 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 Admission Exam Per Admitting Provider GENERAL: Comfortable, pleasant, obese, looks younger than stated age, no respiratory distress SKIN: Normal color, warm HEENT: [place] palpebral conjunctivae, no ptosis, dry buccal mucosa NECK : Supple, no tenderness CHEST : Decreased breath sounds, no tenderness HEART : RRR, no obvious murmurs ABDOMEN: Some distention, nontender EXTREMITIES : Tender RLE swelling, no other conspicuous deformities noted NEUROLOGIC : Coherent, no facial asymmetry, no other gross focality Principal Diagnosis Right leg cellulitis Left ankle gout Discharge Exam Constitutional: AOX 3; not in distress Respiratory: normal respiratory effort, lungs clear to auscultation, no wheeze, rales, rhonchi. Normal insp/exp effort, no accessory muscle use Cardiovascular: RRR, no murmur, no edema Vessels: no JVD or carotid bruit Chest: normal inspection of chest Abdomen: normal bowel sounds, soft, nontender, no hepatosplenomegaly Musculoskeletal: Redness, swelling on right leg improved compared to previous days. Left ankle nontender with ROM intact Skin: no rashes, warm and dry normal turgor Neurologic: PERRL, EOMI, accommodation nl, no face palsy, no dysarthria CN's II- XI intact bilaterally and moves all extremities Psychiatric: A+Ox3, euthymic affect Discharge Data Allergies Allergy/AdvReac Type Severity Reaction Status Date / Time No Known Allergies Allergy Unverified 04/03/24 20:40 Consultations 04/03/24 23:31 ED Decision to Admit Stat Ordered Studies 04/03/24 18:08 US venous doppler LE RT Stat 04/05/24 09:30 CT tib/fib RT wo con Routine Hospital Course (1) Sepsis: This is an 84-year-old male who has a significant past medical history of HTN, HLD, history of CVA, GERD, fatty liver, BPH, macular degeneration, 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 Sepsis RLE cellulitis Patient presented with RLE erthyema and swelling Blood cultures NGTD CT right lower extremity: Diffuse subcutaneous trace edema within the right lower leg with mild skin thickening. This could represent chronic subcutaneous edema or a cellulitis. Venous duplex + R popliteal cyst but no dvt During the hospitalization, patient was treated with IV antibiotics( Daptomycin and Cefepime). Patient showed gradual improvement throughout the hospitalization. He was discharged on Augmentin and doxycycline for 5 more days. Left ankle pain Likely acute gout Patient had acute onset of pain in his left ankle Mild swelling present Likely precipitated by Lasix Uric acid elevated to 8.9 Patient was started on a steroid with improvement in the symptoms. At discharge, he was provided 6 more days of tapering dose of steroid to complete the course. Discussion was done with patient that if he has further gout attacks; he should be started on uric acid lowering treatment. Please note the above document was generated using voice recognition software. It may contain grammatical, syntax or spelling errors. Any formal questions or concerns about the content, text or information contained within the body of this dictation should be directly addressed to the provider for clarification Total Time Total Time Spent Total Time Spent (In Minutes): 45 Total Time Includes: Examination of the Patient, Discharge Planning, Medication Reconciliation, Communication With Other Providers and Other Discharge Plan Discharge Items Patient Disposition: Home - Self-Care Reason For Visit: SEPSIS Discharge Diagnosis: Right lower extremity cellulitis Activity: Resume your previous activity Non-emergency contact: Primary Care Provider Call non-emergency contact if: you have any medication questions and your symptoms worsen Follow-up/Referrals: Moris Thrasher, [employer] [Outside Practitioners] - ([facility] Diet: Regular Addtl Attending Provider Instructions: You were admitted to the hospital due to cellulitis on right leg. You are treated with antibiotics during the hospitalization. You are prescribed Augmentin and doxycycline to be taken twice daily for 5 days to complete the antibiotic course. Keep your leg elevated Lisinopril has been decreased from 40 mg once a day to 20 mg once a day as your blood pressure has been within normal limits. A new prescription has been sent to your [facility] [place]. pharmacy You are prescribed Voltaren gel to be applied to your knee and ankle for better pain control. You are prescribed prednisone(steroid) for the acute gout. Please take it as follows: 1) Take 4 tablets(40mg) once a day for 2 days 2) Take 2 tablets(20mg) once a day for 2 days 2) Take 1 tablet(10 mg) once a day for 2 days You were found to have high level of uric acid which can lead to future gout attacks. If you have any further gout attacks; please discuss with your primary care doctor to prescribe you medication to reduce uric acid level Please avoid using naproxen; use Tylenol instead for pain Pending Studies at Discharge: No Stand-Alone Forms: My [facility], Smoking Cessation Medications and DC Order Prescriptions: New lisinopril 20 mg Tablet 20 mg PO QAM Qty: 30 0RF acetaminophen [Tylenol Extra Strength] 500 mg Tablet 500 mg PO Q6H PRN (Reason: fever or pain) Qty: 60 0RF diclofenac sodium [Voltaren Arthritis Pain] 1 % Gel 4 g EXT TID PRN (Reason: pain) Qty: 100 0RF prednisone 10 mg tablet See Taper PO DAILY Qty: 14 0RF Taper: Taper, Blank 40 mg DAILY for 2 Days 20 mg DAILY for 2 Days 10 mg DAILY for 2 Days amoxicillin-pot clavulanate 875-125 mg tablet 1 tab PO BID 5 Days Qty: 10 0RF doxycycline hyclate 100 mg tablet 100 mg PO BID 5 Days Qty: 10 0RF Continued cholecalciferol (vitamin D3) [Vitamin D3] 25 mcg (1,000 unit) Tablet 25 mcg PO DAILY amlodipine 10 mg Tablet 10 mg PO HS prazosin 2 mg Capsule 2 mg PO HS Discontinued lisinopril 40 mg Tablet 40 mg PO QAM naproxen 500 mg Tablet 500 mg PO UD PRN (Reason: Pain) Discharge Orders: Discharge Order (Routine); Ordered 04/09/24 Ordered By: Clint Galloway/Other Patient Handouts: Cellulitis Dc Admission Data Admit Date/Time: 04/04/24 01:16 Attending Provider: Clint Mosqueda Admit Provider: Nathaniel Yuan Primary Care Provider: PCP,[facility] Other Providers: Nathaniel Yuan; [facility]; [facility]; [facility] Sch[facility] Other Interventions: Discharge Summary Assessment (RN) Last Done: 04/09/24 10:33
== END 2024-04-09 11:47 | disposition home or self-care (01) | DRG 872 ==
LOC: ED 17:52 → 3W 04-04 01:16 → SUATTDRO 04-04 01:16 → 3W 04-04 02:03